=== PATIENT | female | born 1965 | race Two or more races ===

== ENCOUNTER 2024-12-01 20:10 | Inpatient (IN) | payer MEDICAID, OTHER ==
[~2024-12-01] VITALS: Ht 170.2 cm; Wt 73.0 kg
--- NOTE | 2024-12-01 20:36 | ED.PDOC ---
History of Present Illness HPI Comments 59-year-old female with PMHx Thyroid Disease, GERD presents with a chief complaint of chest pain x onset yesterday with associated abdominal pain. Patient states that her pain is localized to her RLQ and sternal chest region. Patient denies any injuries or trauma prior to onset of symptoms. Patient is currently on an antibiotic for a UTI. Patient also mentions that she is having tension in her neck. Time Seen by MD: 20:28 Reviewed Notes: Nurses Notes, Medications, Allergies Allergies: Coded Allergies: No Known Drug Allergy (Verified Allergy, Unknown, 12/01/24) Information Source: Patient Mode of Arrival: Ambulatory Severity: Moderate Timing: Days Duration: Since onset Prehospital treatment: None Past Medical History PAST MEDICAL HISTORY: GERD, Thyroid Surgical History: Denies all surgeries MONOTYPIST History: Denies all MONOTYPIST Hx Family History Family History: Reviewed,noncontributory to illness Social History Smoker: Non-Smoker Alcohol: Denies ETOH Use Drugs: Denies Drug Use Lives In: Home Constitutional: denies: chills, diaphoresis, fatigue, fever, malaise, sweats, weakness, others EENTM: denies: blurred vision, double vision, ear bleeding, ear discharge, ear drainage, ear pain, ear ringing, eye pain, eye redness, hearing loss, mouth pain, mouth swelling, nasal discharge, nose bleeding, nose congestion, nose pain, photophobia, tearing, throat pain, throat swelling, voice changes, others Respiratory: denies: cough, hemoptysis, orthopnea, SOB at rest, shortness of breath, SOB with excertion, stridor, wheezing, others Cardiovascular: reports: chest pain; denies: dizzy spells, diaphoresis, Dyspnea on exertion, edema, irregular heart beat, left arm pain, lightheadedness, palpitations, PND, syncope, others Gastrointestinal: reports: abdominal pain; denies: abdomen distended, blood streaked bowels, constipated, diarrhea, dysphagia, difficulty swallowing, hematemesis, melena, nausea, poor appetite, poor fluid intake, rectal bleeding, rectal pain, vomiting, others Genitourinary: denies: abnormal vagina bleeding, burning, dyspareunia, dysuria, flank pain, frequency, hematuria, incontinence, pain, , vagina discharge, urgency, others Neurological: denies: dizziness, fainting, headache, left sided numbness, left sided weakness, numbness, paresthesia, pre-existing deficit, right sided numbness, right sided weakness, seizure, speech problems, tingling, tremors, weakness, others Musculoskeletal: denies: back pain, gout, joint pain, joint swelling, muscle pain, muscle stiffness, neck pain, others Integumetry: denies: bruises, change in color, change in hair/nails, dryness, laceration, lesions, lumps, rash, wounds, others Allergic/Immunocompromised: denies: Difficulty Healing, Frequent Infections, Hives, Itching, others Hematologic/Lymphatic: denies: anemia, blood clots, easy bleeding, easy bruising, swollen glands, others Endocrine: denies: excessive hunger, excessive sweating, excessive thirst, excessive urination, flushing, intolerance to cold, intolerance to heat, unexplained weight gain, unexplained weight loss, others Psychiatric: denies: anxiety, bipolar disorder, depression, hopeless, panic disorder, schizophrenia, sleepless, suicidal, others All Other Systems: Reviewed and Negative Physical Exam General Appearance: Moderate Distress HEENT: Normal ENT Inspection, Pharynx Normal, TMs Normal Neck: Full Range of Motion, Non-Tender, Normal, Normal Inspection Respiratory: Chest Non-Tender, Lungs Clear, No Accessory Muscle Use, No Respiratory Distress, Normal Breath Sounds Cardiovascular: No Edema, No JVD, No Murmur, No Gallop, Normal Peripheral Pulses, Regular Rate/Rhythm Breast Exam: Deferred Gastrointestinal: Epigastric, No Organomegaly, No Pulsatile Mass, Normal Bowel Sounds, Soft, Tenderness Genitalia: Deferred Pelvic: Deferred Rectal: Deferred Extremities: No calf tenderness, Normal capillary refill, Normal inspection, Normal range of motion, Non-tender, No pedal edema Musculoskeletal : Apperance: Normal Neurologic: Alert, financial sales manager II-XII nml as Tested, No Motor Deficits, Normal Affect, Normal Mood, No Sensory Deficits Cerebellar Function: Normal Reflexes: Normal Skin: Dry, Normal Color, Warm Lymphatic: No Adenopathy Was a procedure done? Was a procedure done?: No Differential Dx Considerations may include: Pancreatitis, cholecystitis, MO, gastritis, UTI X-Ray, Labs, Meds, VS Vital Signs Date Time Temp Pulse Resp B/P (MAP) Pulse Ox O2 Delivery O2 Flow Rate FiO2 12/01/24 21:42 98.2 71 16 115/47 (69) 98 98.2 Lab Test 12/01/24 21:06 12/01/24 20:49 Range/Units Urine Color Colorless Yellow Urine Clarity Clear Clear Urine pH 6.5 5.0-9.0 Urine Specific [place] 1.002 1.001-1.035 Urine Protein Negative Negative Urine Ketones Negative Negative Urine Blood Negative Negative /uL Urine Nitrite Negative Negative Urine Bilirubin Negative Negative Urine Urobilinogen Normal Negative mg/dL Urine Leukocyte Esterase Negative Negative /uL Urine RBC <1 0 - 4 /hpf Urine Microscopic WBC < 1 0-5 /HPF Urine Squamous Epithelial Cells None seen <5 /hpf Urine Bacteria None seen None Seen /hpf Urine Glucose Normal Normal mg/dL White Blood Count 8.3 4.4-10.8 10^3/uL Red Blood Count 4.57 4.0-5.20 10^6/uL Hemoglobin 13.3 12.2-16.2 g/dL Hematocrit 39.5 36.0-46.0 % Mean Corpuscular Volume 86.4 80.0-100.0 fL Mean Corpuscular Hemoglobin 29.2 28.0-32.0 pg Mean Corpuscular Hemoglobin Concent 33.8 32.0-36.0 g/dL Red Cell Distribution Width 14.5 H 11.8-14.3 % Platelet Count 261 140-450 10^3/uL Mean Platelet Volume 7.8 6.9-10.8 fL Neutrophils (%) (Auto) 56.6 37.0-80.0 % Lymphocytes (%) (Auto) 30.7 10.0-50.0 % Monocytes (%) (Auto) 9.0 0.0-12.0 % Eosinophils (%) (Auto) 2.6 0.0-7.0 % Basophils (%) (Auto) 1.1 0.0-2.0 % Neutrophils # (Auto) 4.7 1.6-8.6 10 ^3/uL Lymphocytes # (Auto) 2.6 0.4-5.4 10 ^3/uL Monocytes # (Auto) 0.7 0-1.3 10 ^3/uL Eosinophils # (Auto) 0.2 0-0.8 10 ^3/uL Basophils # (Auto) 0.1 0-0.2 10 ^3/uL Nucleated Red Blood Cells 0.0 % Sodium Level 140 136-145 mmol/L Potassium Level 3.9 3.5-5.1 mmol/L Chloride Level 105 98-107 mmol/L Carbon Dioxide Level 29 20-31 mmol/L Anion Gap 6 5-15 Blood Urea Nitrogen 14 9-23 mg/dL Creatinine 0.76 0.550-1.02 mg/dL Glomerular Filtration Rate Calc 91 >90 mL/min BUN/Creatinine Ratio 18.4 10.0-20.0 Serum Glucose 118 H 74-106 mg/dL Calcium Level 10.1 8.7-10.4 mg/dL Total Bilirubin 0.3 0.2-1.0 mg/dL Aspartate Amino Transferase (AST) 33 13-40 U/L Alanine Aminotransferase (ALT) 30 7-40 U/L Alkaline Phosphatase 62 46-116 U/L Troponin I High Sensitivity 6 </=34 ng/L Total Protein 8.0 5.7-8.2 g/dL Albumin 5.0 H 3.2-4.8 g/dL Lipase 70 H 12-53 U/L IV Hep-Lock was established The patient was being given Protonix 40 mg IV push The patient was given Zofran 4 mg IV push The urine test is negative The CBC is within normal limits. The chemistry panel is within normal limits except for an elevated lipase of [address] scan of the abdomen and pelvis has been done The patient will be signed out to Dr. Baptiste to get the results of the CT scan Images Reviewed?: Images reviewed and evaluated by me Time of 1ST Reevaluation: 20:58 Reevaluation 1ST: Unchanged Patient Education/Counseling: Diagnosis, Treatment, Prognosis Family Education/Counseling: No Family Present Departure 1 Departure Time of Disposition: 21:55 Impression: Primary Impression: Intractable abdominal pain Additional Impression: Acute pancreatitis Qualified Codes: K85.90 - Acute pancreatitis without necrosis or infection, unspecified Disposition: 09 ADMITTED INPATIENT Admit to: Med Surg Condition: Fair Critical Care Note Critical Care Time?: No Stability Stability form required: Yes Unstable for transfer: ED Physician Assesment (Clinical assesment) Heart Score Heart Score: Heart Score Response (Comments) Value History N/A 0 EKG N/A 0 Age N/A 0 Risk Factors N/A 0 Troponin N/A 0 Total 0 I personally scribed for SAWYER UNGER MD ([email or web address]) on 12/01/24 at 20:36. Electronically submitted by Isaac Walker ([email or web address]). SAWYER UNGER MD Dec 01, 2024 20:36
[2024-12-01 21:09] LABS: Urine Bacteria None Seen /hpf (None Seen)
[2024-12-01 21:15] LABS: Basophils # (auto) 0.1 10 ^3/uL (0-0.2); Basophils % (auto) 1.1 % (0.0-2.0); Eosinophils # (auto) 0.2 10 ^3/uL (0-0.8); Eosinophils % (auto) 2.6 % (0.0-7.0); Hematocrit 39.5 % (36.0-46.0); Hemoglobin 13.3 g/dL (12.2-16.2); Lymphocytes # (auto) 2.6 10 ^3/uL (0.4-5.4); Lymphocytes % (auto) 30.7 % (10.0-50.0); Mean Corpuscular Hemoglobin 29.2 pg (28.0-32.0); Mean Corpuscular Hgb Conc. 33.8 g/dL (32.0-36.0); Mean Corpuscular Volume 86.4 fL (80.0-100.0); Monocytes # (auto) 0.7 10 ^3/uL (0-1.3); Neutrophils # (auto) 4.7 10 ^3/uL (1.6-8.6); Neutrophils % (auto) 56.6 % (37.0-80.0); Platelet Count (auto) 261 10^3/uL (140-450); Red Blood Cells 4.57 10^6/uL (4.0-5.20); Red Cell Distribution Width 14.5 % (11.8-14.3); White Blood Cell 8.3 10^3/uL (4.4-10.8)
[2024-12-01 21:18] LABS: Urine Blood Negative /uL (Negative); Urine Clarity Clear (Clear); Urine Color Colorless (Yellow); Urine Protein, UAD Negative (Negative); Urine Specific Gravity 1.002 (1.001-1.035); Urine Squamous Epithelial Cell None Seen /hpf (<5); Urine Urobilinogen Normal (Negative); Urine WBC < 1 /HPF (0-5); Urine pH 6.5 (5.0-9.0)
[2024-12-01 21:20] LABS: Alanine Aminotransferase 30 U/L (7-40); Alkaline Phosphatase 62 U/L (46-116); Anion Gap 6 (5-15); Aspartate Aminotransferase 33 U/L (13-40); BUN/Creatinine Ratio 18.4 (10.0-20.0); Bilirubin, Total 0.3 mg/dL (0.2-1.0); Blood Urea Nitrogen 14 mg/dL (9-23); Calcium 10.1 mg/dL (8.7-10.4); Carbon Dioxide 29 mmol/L (20-31); Chloride 105 mmol/L (98-107); Potassium 3.9 mmol/L (3.5-5.1); Sodium 140 mmol/L (136-145)
[2024-12-01 21:26] LABS: Glucose 118 mg/dL (74-106); Lipase 70 U/L (12-53)
--- NOTE | 2024-12-01 23:05 | DVH ---
Exam: CT CT AB PEL WO CON-NO ORAL OR IV History: pain Comparison Study: None Technique: Multidetector spiral CT of the abdomen was performed from lung bases to pubic symphysis. Imaging was performed without IV contrast. Axial, coronal and sagittal multiplanar reformats were ob tained from the axial data set by the technologist. Radiation Dose : 1. Abdomen/Pelvis: CTDIvol mGy, DLP mGy*cm. Findings: Evaluation of solid organs is limited due to lack of intravenous contrast use. Lung Bases: No abnormality demonstrated. Liver: Liver is normal in size. No focal lesions noted. Gallbladder and Biliary Tree: No abnormality demonstrated. Spleen: No abnormality demonstrated. Pancreas: No abnormality demonstrated. Adrenal Glands: No abnormality demonstrated. Kidneys: No abnormality demonstrated. No evidence of renal calculus or hydroureteronephrosis. Bladder: Grossly unremarkable for degree of distention. Bowel: Stomach appears grossly unremarkable. No abnormally dilated or thick-walled loops of large or small bowel noted. Appendix appears unremarkable. Ascites: Absent Lymphadenopathy: No evidence of lymphadenopathy. Abdominal Wall and Mesentery: Unremarkable. Vasculature: Unremarkable. Pelvic Organs: Unremarkable. Musculoskeletal: No bony lesions or fracture. IMPRESSION: No acute abdominal or pelvic findings. Radiation optimization: All CT scans at this facility use at least one of these dose optimization narda hniques: automated exposure control mA and/or kV adjustment per patient size (includes targeted exam s where dose is matched to clinical indication) or iterative reconstruction.
[2024-12-01 23:15] VITALS: RESP 15; O2SAT 98
[2024-12-01] MEDS: ONDANSETRON HCL 4 MG/2 ML VIAL IV ONE (23:15)
[2024-12-01] MEDS: PANTOPRAZOLE 40 MG/10 ML VIAL INJ IV ONE (23:15)
[2024-12-02] VITALS (9 sets, daily range): BP systolic 93–126; BP diastolic 52–75; PULSE 54–76; RESP 16–100; TEMP 97.8–98.6; O2SAT 91–100
[2024-12-02] MEDS: SODIUM CHLORIDE 0.9% 1,000 ML IV SCH (01:15)
[2024-12-02] MEDS: PANTOPRAZOLE 40 MG/10 ML VIAL INJ IV ONE (01:36)
--- NOTE | 2024-12-02 01:44 | DVHHPRES ---
History of Present Illness Resident Creating Document: CAROLINA PORTILLO RESIDENT Reason for Visit: ABDOMINAL PAIN History of Present Illness Patient is a 59-year-old female, Irish-speaking only, presented to the ED with multiple concerns, but her main problem is generalized abdominal pain. Patient said that she has chronic abdominal pains for which she takes famotidine as needed. However, for the past 3 days, patient said she has been having severe pain in the epigastric to umbilical region and sometimes involving her lower back and the RLQ. Patient denies any trauma, nausea, fever,history of gallstones or any alcohol intake. Of note, patient recently saw her primary care doctor for symptoms of UTI. Patient was given nitrofurantoin for UTI and metronidazole for vaginal inflammation. And overall is feeling better with those medication. Past medical history: Hypothyroidism, GERD Past surgical history: None Family history: noncontributory to the current illness Social history : patient lives at home with her son who is main flow nurse. Past Medical History SEE HPI Past Surgical History See HPI Review of Systems Review of Systems Constitutional: Denies fever no chill; feeling of malaise HEENT: Denies headache, ear pain, ear discharges, conjunctivitis, nasal discharge throat pain Cardiovascular: Denies chest pain, palpitation, orthopnea, PND, or pedal edema Respiratory: Denies shortness of breath, cough cough, sputum production, hemoptysis, GI: epigastric to umbilical region abdominal pain; nausea, vomiting, diarrhea, hematemesis, hematochezia, : Denies frequency, urgency, hematuria, Endocrine: Denies unintentional weight gain or weight loss, feeling of hot flashes, Patricio: Denies easy bruising, bleeding disorders, epistaxis Musculoskeletal: Denies joint pains, muscle aches Psych: No evidence of depression, cecilia, suicidal ideation Allergies: Coded Allergies: No Known Drug Allergy (Verified Allergy, Unknown, 12/01/24) Exam Vital Signs Vital Signs Date Time Temp Pulse Resp B/P (MAP) Pulse Ox O2 Delivery O2 Flow Rate FiO2 12/01/24 23:15 15 98 Room Air* 0 21 21 12/01/24 23:11 98.1 60 110/77 (88) 98.1 Exam General Appearance: Alert, Oriented X3, Cooperative, Mild acute distress HEENT: Atraumatic, PERRLA, EOMI, Mucous membrane moist/pink Respiratory: Clear to auscultation, Normal air movement Cardiovascular: Regular rate, Normal S1, Normal S2, No murmurs, no chest wall tenderness Abdominal: NO distention, Generalized tenderness on palpation; bowel sounds present, no scars noted Extremities: No clubbing, No cyanosis, No edema, Normal pulses, No tenderness/swelling Skin: No rashes, No breakdown, No significant lesion Neuro: Normal gait, Normal speech, Strength at 5/5 X4 ext, Normal tone, Sensation intact, Cranial nerves 3-12 NL, Reflexes 2+ Psych/Mental Status: Mental status NL, Mood NL Labs/Xrays Labs Test 12/01/24 21:06 12/01/24 20:49 Range/Units Urine Color Colorless Yellow Urine Clarity Clear Clear Urine pH 6.5 5.0-9.0 Urine Specific [place] 1.002 1.001-1.035 Urine Protein Negative Negative Urine Ketones Negative Negative Urine Blood Negative Negative /uL Urine Nitrite Negative Negative Urine Bilirubin Negative Negative Urine Urobilinogen Normal Negative mg/dL Urine Leukocyte Esterase Negative Negative /uL Urine RBC <1 0 - 4 /hpf Urine Microscopic WBC < 1 0-5 /HPF Urine Squamous Epithelial Cells None seen <5 /hpf Urine Bacteria None seen None Seen /hpf Urine Glucose Normal Normal mg/dL White Blood Count 8.3 4.4-10.8 10^3/uL Red Blood Count 4.57 4.0-5.20 10^6/uL Hemoglobin 13.3 12.2-16.2 g/dL Hematocrit 39.5 36.0-46.0 % Mean Corpuscular Volume 86.4 80.0-100.0 fL Mean Corpuscular Hemoglobin 29.2 28.0-32.0 pg Mean Corpuscular Hemoglobin Concent 33.8 32.0-36.0 g/dL Red Cell Distribution Width 14.5 H 11.8-14.3 % Platelet Count 261 140-450 10^3/uL Mean Platelet Volume 7.8 6.9-10.8 fL Neutrophils (%) (Auto) 56.6 37.0-80.0 % Lymphocytes (%) (Auto) 30.7 10.0-50.0 % Monocytes (%) (Auto) 9.0 0.0-12.0 % Eosinophils (%) (Auto) 2.6 0.0-7.0 % Basophils (%) (Auto) 1.1 0.0-2.0 % Neutrophils # (Auto) 4.7 1.6-8.6 10 ^3/uL Lymphocytes # (Auto) 2.6 0.4-5.4 10 ^3/uL Monocytes # (Auto) 0.7 0-1.3 10 ^3/uL Eosinophils # (Auto) 0.2 0-0.8 10 ^3/uL Basophils # (Auto) 0.1 0-0.2 10 ^3/uL Nucleated Red Blood Cells 0.0 % Sodium Level 140 136-145 mmol/L Potassium Level 3.9 3.5-5.1 mmol/L Chloride Level 105 98-107 mmol/L Carbon Dioxide Level 29 20-31 mmol/L Anion Gap 6 5-15 Blood Urea Nitrogen 14 9-23 mg/dL Creatinine 0.76 0.550-1.02 mg/dL Glomerular Filtration Rate Calc 91 >90 mL/min BUN/Creatinine Ratio 18.4 10.0-20.0 Serum Glucose 118 H 74-106 mg/dL Calcium Level 10.1 8.7-10.4 mg/dL Total Bilirubin 0.3 0.2-1.0 mg/dL Aspartate Amino Transferase (AST) 33 13-40 U/L Alanine Aminotransferase (ALT) 30 7-40 U/L Alkaline Phosphatase 62 46-116 U/L Troponin I High Sensitivity 6 </=34 ng/L Total Protein 8.0 5.7-8.2 g/dL Albumin 5.0 H 3.2-4.8 g/dL Lipase 70 H 12-53 U/L Assessment/Plan Assessment/Plan Assessment GERD Rule out acute pancreatitis, Intractable abdominal pains hypothyroidism, elevated TSH 6.77 Recent history of UTI, urinalysis is clear Plan Keep patient NPO today and resume PO tomorrow Give D5W 100ml/ hr Check T3 and T4 IV levothyroxine IV Protonix 40 mg daily Zofran Repeat Lipase Lipid panel Check UDS Checks labs in the morning ?GI consult for EGD DVT prophylaxis: Lovenox Diet: NPO for today Goal of care discussed for more than 25 minute: Full code Case and plan discussed with Dr. Rodrigues Plan discussed with: Patient My Orders Orders - CAROLINA PORTILLO RESIDENT Procedure Category Date Status Time Admit ADMIT 12/02/24 Transmitted 01:04 Code Status CODE 12/02/24 Transmitted 01:04 Vital Signs [facility] 12/02/24 Transmitted 01:04 Review Orders With [facility] 12/02/24 Transmitted Adm. 01:04 Npo (Nothing By DIET 12/02/24 Transmitted Mouth) Diet Breakfast Notify Md Of Changes [facility] 12/02/24 Transmitted From Base 01:04 Advance Directive JUAN 12/02/24 Transmitted 01:04 Lipid Panel LAB 12/02/24 Transmitted 01:04 Patient Condition ORDERS 12/02/24 Transmitted 01:04 Allergies JUAN 12/02/24 Transmitted 01:04 Drug Screen LAB 12/02/24 Transmitted 01:04 Hemoglobin A1c LAB 12/02/24 Transmitted 01:04 Lovenox 40mg PHA 12/02/24 Transmitted 10:00 Notify Md Of Changes [facility] 12/02/24 Transmitted From Base 01:04 Blood Alcohol LAB 12/02/24 Transmitted 01:04 Thyroid Stimulating LAB 12/02/24 Transmitted Hormone 01:04 H. Pylori Urea Breath LAB 12/02/24 Transmitted Test 01:04 Pantoprazole PHA 12/02/24 Transmitted (Protonix) 01:15 Pantoprazole PHA 12/02/24 Transmitted (Protonix) 10:00 NS PHA 12/02/24 Transmitted 01:15 Date of Service: Dec 02, 2024 Billing Provider: KEELEY RODRIGUES MD Common Visit Codes: [id number] INP/OBS CARE (HIGH) CAROLINA PORTILLO RESIDENT Dec 02, 2024 01:44 KEELEY RODRIGUES MD Dec 02, 2024 11:33
[2024-12-02 01:58] LABS: Cholesterol 187 mg/dL (< 200); HDL Cholesterol 59 mg/dL (40-59)
[2024-12-02 01:59] LABS: LDL Cholesterol 110 mg/dL (< 100); Triglycerides 162 mg/dL (< 150)
[2024-12-02 01:59] LABS: Amphetamine Screen, Urine Neg (NEGATIVE); Barbiturate Scree,Urine Neg (NEGATIVE); Benzodiazephine Screen, Urine Neg (NEGATIVE); Cannabinoid Screen, Urine Neg (NEGATIVE); Cocaine Screen, Urine Neg (NEGATIVE); Opiate Scree,Urine Neg (NEGATIVE); Phencyclidine Screen, Urine Neg (NEGATIVE)
[2024-12-02] MEDS ORDERED: MET500T PO (04:00)
[2024-12-02] MEDS ORDERED: NITR50CA52 PO (04:02)
[2024-12-02] MEDS ORDERED: FAMO20TA10 PO (04:02)
[2024-12-02] MEDS ORDERED: HYDROcodone-ACET 5/325MG TAB PO PRN (05:15)
[2024-12-02] MEDS ORDERED: LEVO125T7 PO (05:17)
[2024-12-02] MEDS: HYDROcodone-ACET 5/325MG TAB PO ONE (05:34)
[2024-12-02] MEDS: PANTOPRAZOLE 40 MG/10 ML VIAL INJ IV SCH (05:41)
[2024-12-02] MEDS ORDERED: ONDANSETRON HCL 4 MG/2 ML VIAL IV PRN (06:30)
[2024-12-02] MEDS ORDERED: MORPHINE SULFATE INJ 2 MG/ml SYRG IV PRN (06:30)
[2024-12-02] MEDS: D5W/LACTATED RINGERS 1,000 ML IV SCH (06:50)
[2024-12-02] MEDS: LEVOTHYROXINE SODIUM 100 MCG/5 ML INJ IV ONE (06:50)
[2024-12-02 07:22] LABS: Basophils # (auto) 0.1 10 ^3/uL (0-0.2); Basophils % (auto) 1.2 % (0.0-2.0); Eosinophils # (auto) 0.1 10 ^3/uL (0-0.8); Eosinophils % (auto) 1.8 % (0.0-7.0); Hematocrit 37.3 % (36.0-46.0); Hemoglobin 12.2 g/dL (12.2-16.2); Lymphocytes % (auto) 31.6 % (10.0-50.0); Mean Corpuscular Hemoglobin 28.4 pg (28.0-32.0); Mean Corpuscular Hgb Conc. 32.7 g/dL (32.0-36.0); Mean Corpuscular Volume 86.8 fL (80.0-100.0); Monocytes # (auto) 0.6 10 ^3/uL (0-1.3); Monocytes % (auto) 9.6 % (0.0-12.0); Neutrophils # (auto) 3.6 10 ^3/uL (1.6-8.6); Neutrophils % (auto) 55.8 % (37.0-80.0); Nucleated Red Blood Cells % 0.1 %; Platelet Count (auto) 238 10^3/uL (140-450); Red Cell Distribution Width 14.6 % (11.8-14.3); White Blood Cell 6.4 10^3/uL (4.4-10.8)
[2024-12-02 07:33] LABS: Free T3 2.89 pg/mL (2.3-4.2); Free T4 (Free Thyroxine) 1.22 ng/dL (0.89-1.76)
[2024-12-02 07:34] LABS: Calcium 9.6 mg/dL (8.7-10.4); Sodium 141 mmol/L (136-145)
[2024-12-02 07:35] LABS: Anion Gap 7 (5-15); Carbon Dioxide 27 mmol/L (20-31)
[2024-12-02 07:40] LABS: Glucose 95 mg/dL (74-106)
[2024-12-02 07:41] LABS: BUN/Creatinine Ratio 16.2 (10.0-20.0); Blood Urea Nitrogen 12 mg/dL (9-23)
[2024-12-02 07:44] LABS: Chloride 107 mmol/L (98-107); Lipase 59 U/L (12-53)
--- NOTE | 2024-12-02 08:49 | DVH ---
INDICATION: abdominal pain TECHNIQUE: Multiple real-time sonographic images were obtained of the right upper quadrant. COMPARISON: None FINDINGS: The liver demonstrates homogenous echotexture without focal mass lesions. The liver measure s 14 cm. There is no intrahepatic or extrahepatic ductal dilatation. The common duct measures 5 mm. The gallbladder is without evidence of stone or sludge. The gallbladder wall measures 1 mm and is wi thin normal limits. The right kidney measures 10.7 cm. EVALUATION IS LIMITED OF THE RIGHT KIDNEY DUE TO OBSCURATION FROM BOWEL GAS. POSSIBLE ECHOGENIC FOCUS IN THE RIGHT KIDNEY MEASURING 0.5 CM may REPRESENT NONOBSTRUCTIV E RIGHT RENAL STONE. The pancreas is not well visualized due to overlying bowel gas. IMPRESSION: No sonographic evidence of gallstones or acute cholecystitis. Possible nonobstructive right renal stone measuring 0.5 cm. No hydronephrosis.
[2024-12-02] MEDS: ENOXAPARIN SOD 40 MG/0.4 ML SYRINGE SC SCH (09:41)
[2024-12-02] MEDS: FAMOTIDINE 20 MG TAB PO SCH (09:42)
--- NOTE | 2024-12-02 12:35 | DVHPN2 ---
Reviewed: Care Plan, H&P, Labs, Medications, Previous Orders, Radiology Changes from previous H/P or p: No Changes Objective Vitals Vital Signs Date Time Temp Pulse Resp B/P (MAP) Pulse Ox O2 Delivery O2 Flow Rate FiO2 12/02/24 09:43 97.9 58 20 107/60 (76) 97 97.9 12/02/24 08:20 Room Air* 0 21 Intake/Output Intake and Output 12/02/24 07:00 Intake Total 0 ml Output Total 0 ml Balance 0 ml Intake Oral 0 ml Output Stool Total 0 ml # Voids 1 Medications Current Medications Medications Dose Ordered Sig/Hesham Route Start Time Stop Time Status Last Admin Dose Admin Enoxaparin Sodium 40 mg DAILY SC 12/02/24 10:00 12/02/24 09:41 40 MG Pantoprazole Sodium 40 mg DAILY IV 12/03/24 10:00 Famotidine 20 mg BID PO 12/02/24 10:00 12/02/24 09:42 20 MG Morphine Sulfate 1 mg Q4HPRN PRN IV 12/02/24 06:30 Levothyroxine Sodium 112 mcg QAM@0600 PO 12/03/24 06:00 Ondansetron HCl 4 mg Q6HPRN PRN IV 12/02/24 06:30 Dextrose/Lactated Ringer's 1,000 ml @ 100 mls/hr Q10H IV 12/02/24 06:30 12/02/24 06:50 100 MLS/HR Laboratory Results Laboratory Tests 12/02/24 06:45 Chemistry Test 12/01/24 20:49 12/02/24 06:45 Albumin 5.0 g/dL (3.2-4.8) H Calcium Level 10.1 mg/dL (8.7-10.4) 9.6 mg/dL (8.7-10.4) Total Protein 8.0 g/dL (5.7-8.2) Lipid panel Test 12/01/24 20:49 12/02/24 06:45 Cholesterol Level 187 mg/dL (< 200) HDL Cholesterol 59 mg/dL (40-59) Lipase 70 U/L (12-53) H 59 U/L (12-53) H Triglycerides Level 162 mg/dL (< 150) H LFT Test 12/01/24 20:49 Alanine Aminotransferase (ALT) 30 U/L (7-40) Alkaline Phosphatase 62 U/L (46-116) Aspartate Amino Transferase (AST) 33 U/L (13-40) Total Bilirubin 0.3 mg/dL (0.2-1.0) HgA1c, TSH Test 12/01/24 20:49 Hemoglobin A1c 5.6 % A1C (<5.7) Thyroid Stimulating Hormone (TSH) 6.77 uIU/mL (0.55-4.78) H Urinalysis Test 12/01/24 21:06 Urine Color Colorless (Yellow) Urine Clarity Clear (Clear) Urine pH 6.5 (5.0-9.0) Urine Specific [place] 1.002 (1.001-1.035) Urine Protein Negative (Negative) Urine Ketones Negative (Negative) Urine Blood Negative /uL (Negative) Urine Nitrite Negative (Negative) Urine Bilirubin Negative (Negative) Urine Urobilinogen Normal mg/dL (Negative) Urine Leukocyte Esterase Negative /uL (Negative) Urine RBC <1 /hpf (0 - 4) Urine Microscopic WBC < 1 /HPF (0-5) Urine Squamous Epithelial Cells None seen /hpf (<5) Urine Bacteria None seen /hpf (None Seen) Urine Glucose Normal mg/dL (Normal) Labs and/or images reviewed: Labs reviewed by me, Image(s) reviewed by me Assessment/Plan Assessment/Plan Acute abdominal pain Acute pancreatitis: Pantoprazole Acute dehydration: IV fluids Hypothyroidism TSH 6.77: Synthroid Recent history of UTI: UA clear Examined the patient with the help of inclusion teacher Pelvis without contrast negative Liver ultrasound negative for any gallstones or cholecystitis Plan discussed with: Patient Date of Service: Dec 02, 2024 Billing Provider: FAWAD ELLIS MD Common Visit Codes: [id number] INP/OBS CARE(HIGH) FAWAD ELLIS MD Dec 02, 2024 12:35
[2024-12-02] MEDS: SUCRALFATE 1 GM/10 ML ORAL SUSP PO ONE (19:28)
[2024-12-02] MEDS: SUCRALFATE 1 GM/10 ML ORAL SUSP PO SCH (21:48)
[2024-12-03 05:00] VITALS: BP 107/59; PULSE 79; RESP 18; TEMP 98.9; O2SAT 95
[2024-12-03] MEDS: LEVOTHYROXINE SODIUM 112 MCG TAB PO SCH (05:26)
[2024-12-03 08:10] VITALS: PULSE 82; RESP 15; O2SAT 93
[2024-12-03 09:00] VITALS: BP 120/68; PULSE 82; RESP 15; TEMP 98.1; O2SAT 94
[2024-12-03] MEDS: PANTOPRAZOLE 40 MG/10 ML VIAL INJ IV SCH (09:30)
[2024-12-03] MEDS ORDERED: PANTOPRAZOLE 40 MG/10 ML VIAL INJ IV SCH (10:00)
--- NOTE | 2024-12-03 11:47 | DVHPN2 ---
Reviewed: Care Plan, H&P, Labs, Medications, Previous Orders, Radiology Changes from previous H/P or p: No Changes Objective Vitals Vital Signs Date Time Temp Pulse Resp B/P (MAP) Pulse Ox O2 Delivery O2 Flow Rate FiO2 12/03/24 09:00 98.1 82 15 120/68 (85) 94 98.1 12/02/24 20:00 Room Air* 0 21 Intake/Output Intake and Output 12/03/24 07:00 Intake Total 2200 ml Balance 2200 ml Intake Oral 200 ml IV Total 2000 ml # Voids 6 Medications Current Medications Medications Dose Ordered Sig/Hesham Route Start Time Stop Time Status Last Admin Dose Admin Enoxaparin Sodium 40 mg DAILY SC 12/02/24 10:00 12/03/24 09:30 40 MG Pantoprazole Sodium 40 mg DAILY IV 12/03/24 10:00 12/03/24 09:30 40 MG Morphine Sulfate 1 mg Q4HPRN PRN IV 12/02/24 06:30 Levothyroxine Sodium 112 mcg QAM@0600 PO 12/03/24 06:00 12/03/24 05:26 112 MCG Ondansetron HCl 4 mg Q6HPRN PRN IV 12/02/24 06:30 Dextrose/Lactated Ringer's 1,000 ml @ 100 mls/hr Q10H IV 12/02/24 06:30 12/03/24 11:32 100 MLS/HR Sucralfate 1 gm TID@0600,1130,2200 PO 12/02/24 22:00 12/03/24 11:32 1 GM Laboratory Results Laboratory Tests 12/02/24 06:45 Urinalysis Test 12/01/24 21:06 Urine Color Colorless (Yellow) Urine Clarity Clear (Clear) Urine pH 6.5 (5.0-9.0) Urine Specific [place] 1.002 (1.001-1.035) Urine Protein Negative (Negative) Urine Ketones Negative (Negative) Urine Blood Negative /uL (Negative) Urine Nitrite Negative (Negative) Urine Bilirubin Negative (Negative) Urine Urobilinogen Normal mg/dL (Negative) Urine Leukocyte Esterase Negative /uL (Negative) Urine RBC <1 /hpf (0 - 4) Urine Microscopic WBC < 1 /HPF (0-5) Urine Squamous Epithelial Cells None seen /hpf (<5) Urine Bacteria None seen /hpf (None Seen) Urine Glucose Normal mg/dL (Normal) Labs and/or images reviewed: Labs reviewed by me, Image(s) reviewed by me Assessment/Plan Assessment/Plan Acute abdominal pain Acute pancreatitis: Pantoprazole Acute dehydration: IV fluids Hypothyroidism TSH 6.77: Synthroid Recent history of UTI: UA clear Examined the patient with the help of front end developer CT Pelvis without contrast negative Liver ultrasound negative for any gallstones or cholecystitis Patient feels better and wants to go home Plan discussed with: Patient Date of Service: Dec 03, 2024 Billing Provider: FAWAD ELLIS MD Common Visit Codes: [id number] INP/OBS CARE(HIGH) FAWAD ELLIS MD Dec 03, 2024 11:47
--- NOTE | 2024-12-03 11:51 | DVHDS2 ---
Discharge Summary Date of Admission Dec 02, 2024 at 01:04 Date of Discharge: Dec 03, 2024 Admitting Diagnosis epigastric pain Wounds: None Labs/Diagnostic Data: Laboratory Results Test 12/02/24 09:44 12/02/24 06:45 12/01/24 21:06 12/01/24 20:49 Lactic Acid Level 0.9 mmol/L (0.4-2.0) White Blood Count 6.4 10^3/uL (4.4-10.8) Red Blood Count 4.30 10^6/uL (4.0-5.20) Hemoglobin 12.2 g/dL (12.2-16.2) Hematocrit 37.3 % (36.0-46.0) Mean Corpuscular Volume 86.8 fL (80.0-100.0) Mean Corpuscular Hemoglobin 28.4 pg (28.0-32.0) Mean Corpuscular Hemoglobin Concent 32.7 g/dL (32.0-36.0) Red Cell Distribution Width 14.6 % (11.8-14.3) Platelet Count 238 10^3/uL (140-450) Mean Platelet Volume 7.8 fL (6.9-10.8) Neutrophils (%) (Auto) 55.8 % (37.0-80.0) Lymphocytes (%) (Auto) 31.6 % (10.0-50.0) Monocytes (%) (Auto) 9.6 % (0.0-12.0) Eosinophils (%) (Auto) 1.8 % (0.0-7.0) Basophils (%) (Auto) 1.2 % (0.0-2.0) Neutrophils # (Auto) 3.6 10 ^3/uL (1.6-8.6) Lymphocytes # (Auto) 2.0 10 ^3/uL (0.4-5.4) Monocytes # (Auto) 0.6 10 ^3/uL (0-1.3) Eosinophils # (Auto) 0.1 10 ^3/uL (0-0.8) Basophils # (Auto) 0.1 10 ^3/uL (0-0.2) Nucleated Red Blood Cells 0.1 % Sodium Level 141 mmol/L (136-145) Potassium Level 4.0 mmol/L (3.5-5.1) Chloride Level 107 mmol/L (98-107) Carbon Dioxide Level 27 mmol/L (20-31) Anion Gap 7 (5-15) Blood Urea Nitrogen 12 mg/dL (9-23) Creatinine 0.74 mg/dL (0.550-1.02) Glomerular Filtration Rate Calc 94 mL/min (>90) BUN/Creatinine Ratio 16.2 (10.0-20.0) Serum Glucose 95 mg/dL (74-106) Calcium Level 9.6 mg/dL (8.7-10.4) Lipase 59 U/L (12-53) Free Thyroxine (T4) Calculated 1.22 ng/dL (0.89-1.76) Free Triiodothyronine (T3) pg/mL 2.89 pg/mL (2.3-4.2) Urine Color Colorless (Yellow) Urine Clarity Clear (Clear) Urine pH 6.5 (5.0-9.0) Urine Specific [place] 1.002 (1.001-1.035) Urine Protein Negative (Negative) Urine Ketones Negative (Negative) Urine Blood Negative /uL (Negative) Urine Nitrite Negative (Negative) Urine Bilirubin Negative (Negative) Urine Urobilinogen Normal mg/dL (Negative) Urine Leukocyte Esterase Negative /uL (Negative) Urine RBC <1 /hpf (0 - 4) Urine Microscopic WBC < 1 /HPF (0-5) Urine Squamous Epithelial Cells None seen /hpf (<5) Urine Bacteria None seen /hpf (None Seen) Urine Glucose Normal mg/dL (Normal) Urine Opiates Screen Neg (NEGATIVE) Urine Fentanyl Screen Neg (NEGATIVE) Urine Barbiturates Screen Neg (NEGATIVE) Urine Phencyclidine Screen Neg (NEGATIVE) Urine Amphetamines Screen Neg (NEGATIVE) Urine Benzodiazepines Screen Neg (NEGATIVE) Urine Cocaine Screen Neg (NEGATIVE) Urine Cannabinoids Screen Neg (NEGATIVE) Hemoglobin A1c 5.6 % A1C (<5.7) Total Bilirubin 0.3 mg/dL (0.2-1.0) Aspartate Amino Transferase (AST) 33 U/L (13-40) Alanine Aminotransferase (ALT) 30 U/L (7-40) Alkaline Phosphatase 62 U/L (46-116) Troponin I High Sensitivity 6 ng/L (</=34) Total Protein 8.0 g/dL (5.7-8.2) Albumin 5.0 g/dL (3.2-4.8) Triglycerides Level 162 mg/dL (< 150) Cholesterol Level 187 mg/dL (< 200) LDL Cholesterol 110 mg/dL (< 100) HDL Cholesterol 59 mg/dL (40-59) Thyroid Stimulating Hormone (TSH) 6.77 uIU/mL (0.55-4.78) Plasma/Serum Blood Alcohol 4.6 mg/dL (<10) Other Laboratory Tests 12/02/24 06:45 Brief Hx & Hospital Course: 72-year-old female with a history of hypothyroidism recent UTI came in complaining of abdominal pain. CT abdomen pelvis without contrast was negative. Liver ultrasound negative for any gallstones or cholecystitis mild pancreatitis with a lipase of 62 treated with the IV fluids pantoprazole and Carafate patient feels much better being discharged home able to tolerate regular diet. Consults/Reason for consult None Operations or Procedures CT abdomen pelvis without contrast Condition at Discharge: Fair Final Diagnosis/Problems List Acute abdominal pain Acute pancreatitis: Pantoprazole Acute dehydration: IV fluids Hypothyroidism TSH 6.77: Synthroid Recent history of UTI: MAGNO jones Examined the patient with the help of stem maker CT Pelvis without contrast negative Liver ultrasound negative for any gallstones or cholecystitis Patient feels better and wants to go home Discharge Disposition: Home Discharge Instruct/Medications Diet: Regular Activity: Light activity Follow Up/Referral: Follow up with the primary Dr Medications: Transmitted to pharmacy 36 (time Taken For discharge summary 36 minutes) Discharge Statement: "Patient was advised to return to the ER or call 911 if any headaches, dizziness, shortness of breath, chest pain, abdominal pain, bleeding, fevers, or worsening of medical condition. Patient was counseled about treatment plan, medications, possible side effects, patientverbalized understanding. All questions were answered to the best of my ability. This discharge took greater then 30 minutes in planning, reviewing documentation, counseling the patient, and discussing with other team members." ASSESSMENT ASSESSMENT Hospital Course Improved Assessment Acute abdominal pain Acute pancreatitis: Pantoprazole Acute dehydration: IV fluids Hypothyroidism TSH 6.77: Synthroid Recent history of UTI: MAGNO jones Examined the patient with the help of stem maker CT Pelvis without contrast negative Liver ultrasound negative for any gallstones or cholecystitis Patient feels better and wants to go home Date of Service: Dec 03, 2024 Billing Provider: FAWAD ELLIS MD Common Visit Codes: 84170-TOD/OBS DISCH DAY >30min FAWAD ELLIS MD Dec 03, 2024 11:51
[2024-12-03] MEDS ORDERED: PANT40T PO (11:57)
[2024-12-03] MEDS ORDERED: SUCR1TAB31 PO (11:57)
[2024-12-03 12:35] VITALS: BP 124/70; PULSE 82; RESP 16; TEMP 99.5; O2SAT 95
[2024-12-03 13:04] VITALS: BP 124/70; PULSE 82; RESP 16; TEMP 99.5; O2SAT 95
== END 2024-12-03 15:00 | disposition home or self-care (01) | DRG 282 ==
LOC: ER 20:10 → OVERFLOW 12-02 01:04 → WEST WING 12-02 03:27
PROVIDERS: ADMIT Family Medicine; ATTEND Family Medicine
DX: K85.90 Acute pancreatitis without necrosis or infection, unspecified (principal); E03.9 Hypothyroidism, unspecified; E86.0 Dehydration; K21.9 Gastro-esophageal reflux disease without esophagitis; Z87.440 Personal history of urinary (tract) infections
CPT/HCPCS: 36415; 74176; 76705; 80048; 80053; 80061; 80307; 80320; 81001; 83036; 83605; 83690; 84439; 84443; 84481; 84484; 85025; G0378; J2470; J3490

== ENCOUNTER 2025-03-17 13:33 | Inpatient (IN) | payer MEDICAID ==
[~2025-03-17] VITALS: Ht 160 cm; Wt 77.0 kg
[2025-03-17] MEDS: SODIUM CHLORIDE 0.9% 1,000 ML IV SCH
[~2025-03-17 13:33] MED LIST: FAMO20TA10 PO; LEVO125T7 PO; MET500T PO; NITR50CA52 PO; PANT40T PO; SUCR1TAB31 PO
--- NOTE | 2025-03-17 14:23 | ED.PDOC ---
GI ASSESSMENT HPI Comments 59 y/o F, with PMHx of thyroid disease and GERD presents to the ED for CC of abdominal pain. Patient states, she has been experiencing RLQ abdominal pain with associated back pain x4days. Patient reports, pain to be burning in sensation. Patient comments, that she was seen at [facility] for SS x1hr INFORMATION SYSTEMS ANALYST and was told to follow up with the ED for a further evaluation of symptoms. Patient denies dysuria, fever, chills, nausea, vomiting, or diarrhea. No other symptoms or modifying factors present at this time. Chief Complaint: Abdominal Pain Time Seen by MD: 14:00 Reviewed Notes: Nurses Notes, Medications, Allergies Allergies: Coded Allergies: No Known Drug Allergy (Verified Allergy, Unknown, 12/01/24) Home Meds Active Scripts Sucralfate (CARAFATE) 1 Gm Tab, 1 GM PO QID, #60 TAB Prov:FAWAD ELLIS MD 12/03/24 Pantoprazole Sodium Sesquihydr (Pantoprazole Sodium) 40 Mg Tab, 40 MG PO DAILY, #15 TAB Prov:FAWAD ELLIS MD 12/03/24 Reported Medications Levothyroxine Sodium (Levothyroxine Sodium) 125 Mcg Tab, 1 TAB PO DAILY 12/02/24 Nitrofurantoin (MACRODANTIN CAPSULE) 50 Mg Cp, 1 CAP PO DAILY, #30 CAP 11 Refills 12/02/24 Famotidine (PEPCID TABLET) 20 Mg Tb, 1 TAB PO BID, #60 TAB 5 Refills 12/02/24 Metronidazole (Metronidazole) 500 Mg Tab, 500 MG PO, TAB 12/02/24 Information Source: Patient Mode of Arrival: Ambulatory Timing: Hours Duration: Since onset Prehospital treatment: None Quality: None Vomitus: None Stool: Normal Severity: Moderate Recent: None Recent Hx of: None Pain Location: RLQ Modifying Factors: Nothing Associated sign and symptoms: Abdominal Pain Past Medical History PAST MEDICAL HISTORY: GERD, Thyroid Surgical History: Denies all surgeries ENTERPRISE RESOURCE PLANNING CONSULTANT History: Denies all ENTERPRISE RESOURCE PLANNING CONSULTANT Hx Family History Family History: Reviewed,noncontributory to illness Social History Smoker: Non-Smoker Alcohol: Denies ETOH Use Drugs: Denies Drug Use Lives In: Home Constitutional: denies: chills, diaphoresis, fatigue, fever, malaise, sweats, weakness, others EENTM: denies: blurred vision, double vision, ear bleeding, ear discharge, ear drainage, ear pain, ear ringing, eye pain, eye redness, hearing loss, mouth pain, mouth swelling, nasal discharge, nose bleeding, nose congestion, nose pain, photophobia, tearing, throat pain, throat swelling, voice changes, others Respiratory: denies: cough, hemoptysis, orthopnea, SOB at rest, shortness of breath, SOB with excertion, stridor, wheezing, others Cardiovascular: denies: chest pain, dizzy spells, diaphoresis, Dyspnea on exertion, edema, irregular heart beat, left arm pain, lightheadedness, palpita tions, PND, syncope, others Gastrointestinal: reports: abdominal pain; denies: abdomen distended, blood streaked bowels, constipated, diarrhea, dysphagia, difficulty swallowing, hematemesis, melena, nausea, poor appetite, poor fluid intake, rectal bleeding, rectal pain, vomiting, others Genitourinary: denies: abnormal vagina bleeding, burning, dyspareunia, dysuria, flank pain, frequency, hematuria, incontinence, pain, , vagina discharg e, urgency, others Neurological: denies: dizziness, fainting, headache, left sided numbness, left sided weakness, numbness, paresthesia, pre-existing deficit, right sided numbness, right sided weakness, seizure, speech problems, tingling, tremors, weakness, others Musculoskeletal: reports: back pain; denies: gout, joint pain, joint swelling, muscle pain, muscle stiffness, neck pain, others Integumetry: denies: bruises, change in color, change in hair/nails, dryness, laceration, lesions, lumps, rash, wounds, others Allergic/Immunocompromised: denies: Difficulty Healing, Frequent Infections, Hives, Itching, others Hematologic/Lymphatic: denies: anemia, blood clots, easy bleeding, easy bruising, swollen glands, others Endocrine: denies: excessive hunger, excessive sweating, excessive thirst, excessive urination, flushing, intolerance to cold, intolerance to heat, unexplained weight gain, unexplained weight loss, others Psychiatric: denies: anxiety, bipolar disorder, depression, hopeless, panic disorder, schizophrenia, sleepless, suicidal, others All Other Systems: Reviewed and Negative Physical Exam General Appearance: No Apparent Distress, Normal HEENT: Normal ENT Inspection, Pharynx Normal Neck: Full Range of Motion, Non-Tender, Normal, Normal Inspection Respiratory: Chest Non-Tender, Lungs Clear, No Accessory Muscle Use, No Respiratory Distress, Normal Breath Sounds Cardiovascular: No Edema, No Murmur, No Gallop, Normal Peripheral Pulses, Regular Rate/Rhythm Breast Exam: Deferred Gastrointestinal: No Organomegaly, Non Tender, No Pulsatile Mass, Normal Bowel Sounds, Soft Genitalia: Deferred Pelvic: Deferred Rectal: Deferred Extremities: No calf tenderness, Normal capillary refill, Normal inspection, Normal range of motion, Non-tender, No pedal edema Musculoskeletal : Apperance: Normal Neurologic: Alert, director of outside sales II-XII nml as Tested, No Motor Deficits, Normal Affect, Normal Mood, No Sensory Deficits Cerebellar Function: Normal Reflexes: Normal Skin: Dry, Normal Color, Warm Lymphatic: No Adenopathy Was a procedure done? Was a procedure done?: No GI differential Dx Differential Diagnosis: Appendicitis, Diverticular disease, Gastritis/PUD, Gastroenteritis, Inflammatory BD X-Ray, Labs, Meds, VS Vital Signs Date Time Temp Pulse Resp B/P (MAP) Pulse Ox O2 Delivery O2 Flow Rate FiO2 03/17/25 13:50 98.4 66 16 115/76 (89) 98 98.4 Lab Test 03/17/25 14:09 03/17/25 13:50 Range/Units White Blood Count 7.0 4.4-10.8 10^3/uL Red Blood Count 4.67 4.0-5.20 10^6/uL Hemoglobin 13.4 12.2-16.2 g/dL Hematocrit 39.4 36.0-46.0 % Mean Corpuscular Volume 84.5 80.0-100.0 fL Mean Corpuscular Hemoglobin 28.7 28.0-32.0 pg Mean Corpuscular Hemoglobin Concent 33.9 32.0-36.0 g/dL Red Cell Distribution Width 14.7 H 11.8-14.3 % Platelet Count 236 140-450 10^3/uL Mean Platelet Volume 8.0 6.9-10.8 fL Neutrophils (%) (Auto) 56.1 37.0-80.0 % Lymphocytes (%) (Auto) 30.0 10.0-50.0 % Monocytes (%) (Auto) 9.9 0.0-12.0 % Eosinophils (%) (Auto) 2.5 0.0-7.0 % Basophils (%) (Auto) 1.5 0.0-2.0 % Neutrophils # (Auto) 3.9 1.6-8.6 10 ^3/uL Lymphocytes # (Auto) 2.1 0.4-5.4 10 ^3/uL Monocytes # (Auto) 0.7 0-1.3 10 ^3/uL Eosinophils # (Auto) 0.2 0-0.8 10 ^3/uL Basophils # (Auto) 0.1 0-0.2 10 ^3/uL Nucleated Red Blood Cells 0.0 % Sodium Level 139 136-145 mmol/L Potassium Level 3.7 3.5-5.1 mmol/L Chloride Level 105 98-107 mmol/L Carbon Dioxide Level 28 20-31 mmol/L Anion Gap 6 5-15 Blood Urea Nitrogen 13 9-23 mg/dL Creatinine 0.79 0.550-1.02 mg/dL Glomerular Filtration Rate Calc 87 >90 mL/min BUN/Creatinine Ratio 16.5 10.0-20.0 Serum Glucose 91 74-106 mg/dL Lactic Acid Level 0.6 0.4-2.0 mmol/L Calcium Level 10.1 8.7-10.4 mg/dL Urine Color Colorless Yellow Urine Clarity Clear Clear Urine pH 6.5 5.0-9.0 Urine Specific [place] 1.001 1.001-1.035 Urine Protein Negative Negative Urine Ketones Negative Negative Urine Blood Negative Negative /uL Urine Nitrite Negative Negative Urine Bilirubin Negative Negative Urine Urobilinogen Normal Negative mg/dL Urine Leukocyte Esterase Negative Negative /uL Urine RBC <1 0 - 4 /hpf Urine Microscopic WBC < 1 0-5 /HPF Urine Squamous Epithelial Cells None seen <5 /hpf Urine Bacteria None seen None Seen /hpf Urine Glucose Normal Normal mg/dL Time of 1ST Reevaluation: 14:30 Reevaluation 1ST: Unchanged Patient Education/Counseling: Diagnosis, Treatment Family Education/Counseling: No Family Present SEPSIS Sepsis Screen Physician Orders Chest Portable (03/17/25 14:02) Ct Ab Pel With Iv Con Only (03/17/25 14:02) Cefazolin Ancef (03/17/25 17:00) Metronidazole Ivpb Flagyl (03/17/25 17:00) Morphine Sulfate Injection (03/17/25 17:00) Ondansetron Hcl (Zofran) (03/17/25 17:00) Vital Signs Date Time Temp Pulse Resp B/P (MAP) Pulse Ox O2 Delivery O2 Flow Rate FiO2 03/17/25 13:50 98.4 66 16 115/76 (89) 98 98.4 Laboratory Tests Test 03/17/25 14:09 Lactic Acid Level 0.6 mmol/L (0.4-2.0) White Blood Count 7.0 10^3/uL (4.4-10.8) Departure 1 Departure Time of Disposition: 16:57 (Patient presented with abdominal pain that was concerning for possible appendicits, gastritis, cholecystitis, colitis, gastroenteritis, sbo, or orther possible surgical emergency. Data: 1. I ordered and reviewed the result of at least 3 labs including a CBC, BMP, and Urinalysis. 2. I independently interpreted the following tests: CT Abdoment and Pelvis is concerning for acute appendicitis .Risk:This patient has a high risk of morbidity due to further diagnostic testing or treatment and may suffer from an acute abdominal process disorder. Workup reveals acute appendicitis and patient should be admitted for further workup. and possible expert consultation. ) Impression: Primary Impression: Acute appendicitis Qualified Codes: K35.30 - Acute appendicitis with localized peritonitis, without perforation or gangrene Additional Impression: Right lower quadrant pain Disposition: ADMITTED INPATIENT Admit to: Med Surg Condition: Guarded Critical Care Note Critical Care Time?: Yes Critical care comment: Intractable abdominal pain Authorized and Performed by: Pooja Vidal MD Total critical care time: Approximately 41 minutes Due to a high probability of clinically significant, life threatening deterioration, the patient required my highest level of preparedness to intervene emergently and I personally spent this critical care time directly and personally managing the patient. This critical care time included obtaining a history; examining the patient; pulse oximetry; ordering and review of studies; arranging urgent treatment with development of a management plan; evaluation of patient's response to treatment; frequent reassessment; and, discussions with other providers. This critical care time was performed to assess and manage the high probability of imminent, life-threatening deterioration that could result in multi-organ failure. It was exclusive of separately billable procedures and treating other patients and teaching time. Please see my other sections and the rest of the note for further information on patient assessment and treatment. Stability Stability form required: No Heart Score Heart Score: Heart Score Response (Comments) Value History N/A 0 EKG N/A 0 Age N/A 0 Risk Factors N/A 0 Troponin N/A 0 Total 0 I personally scribed for POOJA VIDAL MD ([email or web address]) on 03/17/25 at 14:23. Electronically submitted by Julia Britton ([email or web address]). POOJA VIDAL MD Mar 17, 2025 14:23
[2025-03-17 14:24] LABS: Hematocrit 39.4 % (36.0-46.0); Hemoglobin 13.4 g/dL (12.2-16.2); Mean Corpuscular Hemoglobin 28.7 pg (28.0-32.0); Mean Corpuscular Volume 84.5 fL (80.0-100.0); Nucleated Red Blood Cells % 0.0 %
[2025-03-17 14:26] LABS: Urine Protein, UAD Negative (Negative)
[2025-03-17 14:32] LABS: Chloride 105 mmol/L (98-107); Potassium 3.7 mmol/L (3.5-5.1); Sodium 139 mmol/L (136-145)
[2025-03-17 14:33] LABS: Anion Gap 6 (5-15); Calcium 10.1 mg/dL (8.7-10.4); Carbon Dioxide 28 mmol/L (20-31)
[2025-03-17 14:38] LABS: BUN/Creatinine Ratio 16.5 (10.0-20.0); Blood Urea Nitrogen 13 mg/dL (9-23); Glucose 91 mg/dL (74-106)
--- NOTE | 2025-03-17 16:32 | DVH ---
CHEST RADIOGRAPH Indication: rlq pain Technique: Single frontal view of the chest was obtained Comparison: None FINDINGS: Lines and Tubes: None Lungs: No focal consolidation. Pleura: No effusion. No pneumothorax. Cardiomediastinal contours: Unremarkable Bones: No acute osseous abnormality. IMPRESSION: No acute cardiopulmonary disease.
--- NOTE | 2025-03-17 16:42 | DVH ---
Exam: CT CT AB PEL WITH IV CON ONLY History: rlq pain Comparison Study: None TECHNIQUE: Multidetector CT of the abdomen and pelvis with IV contrast. Axial, coronal and sagittal m ultiplanar reformats were obtained from the axial data set by the technologist. Radiation Dose Information: CT Dose: CTDI volume is 11.73 mGy. Dose-length product is 590.35 mGy*cm FINDINGS: Bilateral dependent atelectasis. Partially visualized heart is unremarkable. Liver, spleen, gallbladder, pancreas and adrenal glands are unremarkable. Mild bilateral renal pelviectasis. Slight horizontal position of the kidneys. No renal calculi bilat erally. Bilateral ureters are unremarkable. Urinary bladder is mildly distended. Minimal wall thicken ing of the urinary bladder. Uterus and Adnexa are unremarkable. Small hiatal hernia. Mild Gastric wall thickening with mild Wall thickening of Proximal small bowel l oops. The remainder of the small bowel loops unremarkable. Appendix is slightly prominent measuring up to 9 mm with a small appendicoliths within the appendix. The tip is not well-visualized. No peria ppendiceal inflammatory reaction or appendiceal wall thickening is noted. Moderate amount of fecal ma terial within the colon. No evidence of intraperitoneal free air or free fluid. No evidence of aortic aneurysm or dissection. No significant lymphadenopathy. Small fat containing umbilical hernia with mild fat stranding within the hernia. Soft tissues unremar kable. No destructive osseous lesions noted. IMPRESSION: Appendix measures up to 9 mm proximally with small appendicoliths within the mid appendix, no periapp endiceal inflammatory reaction and nonvisualization of the appendiceal tip. Early acute appendicitis can not be excluded. Mild bilateral renal pelviectasis with no obstructing calculus noted. Mild wall thickening of the urinary bladder. Recommend correlation with urinalysis for possible cyst itis. Mild wall thickening of the stomach and proximal small bowel which may be due to inadequate distentio n with gastroenteritis not excluded. Moderate amount of fecal material within the colon.
[2025-03-17] MEDS: SODIUM CHLORIDE 0.9% 1,000 ML IV ONE (17:01)
[2025-03-17] MEDS: ONDANSETRON HCL 4 MG/2 ML VIAL IV ONE ×2 (17:03→18:36)
[2025-03-17] MEDS: MORPHINE SULFATE 4 MG/ML SYR/VIAL IV ONE ×2 (17:05→18:38)
[2025-03-17] MEDS: IOHEXOL 300 MG/ML 100ML BOTTLE IJ ONE ×2 (17:06)
--- NOTE | 2025-03-17 17:47 | DVHINCON2 ---
Date of service: Mar 17, 2025 Family History: Patient reports no known family medical history. Allergies: Coded Allergies: No Known Drug Allergy (Verified Allergy, Unknown, 12/01/24) Home Meds Active Scripts Sucralfate (CARAFATE) 1 Gm Tab, 1 GM PO QID, #60 TAB Prov:FAWAD ELLIS MD 12/03/24 Pantoprazole Sodium Sesquihydr (Pantoprazole Sodium) 40 Mg Tab, 40 MG PO DAILY, #15 TAB Prov:FAWAD ELLIS MD 12/03/24 Reported Medications Levothyroxine Sodium (Levothyroxine Sodium) 125 Mcg Tab, 1 TAB PO DAILY 12/02/24 Nitrofurantoin (MACRODANTIN CAPSULE) 50 Mg Cp, 1 CAP PO DAILY, #30 CAP 11 Refills 12/02/24 Famotidine (PEPCID TABLET) 20 Mg Tb, 1 TAB PO BID, #60 TAB 5 Refills 12/02/24 Metronidazole (Metronidazole) 500 Mg Tab, 500 MG PO, TAB 12/02/24 Vital Signs Vital Signs Date Time Temp Pulse Resp B/P (MAP) Pulse Ox O2 Delivery O2 Flow Rate FiO2 03/17/25 17:05 65 19 104/61 03/17/25 13:50 98.4 98 98.4 Labs/Diagnostic Data Labs Test 03/17/25 14:09 03/17/25 13:50 Range/Units White Blood Count 7.0 4.4-10.8 10^3/uL Red Blood Count 4.67 4.0-5.20 10^6/uL Hemoglobin 13.4 12.2-16.2 g/dL Hematocrit 39.4 36.0-46.0 % Mean Corpuscular Volume 84.5 80.0-100.0 fL Mean Corpuscular Hemoglobin 28.7 28.0-32.0 pg Mean Corpuscular Hemoglobin Concent 33.9 32.0-36.0 g/dL Red Cell Distribution Width 14.7 H 11.8-14.3 % Platelet Count 236 140-450 10^3/uL Mean Platelet Volume 8.0 6.9-10.8 fL Neutrophils (%) (Auto) 56.1 37.0-80.0 % Lymphocytes (%) (Auto) 30.0 10.0-50.0 % Monocytes (%) (Auto) 9.9 0.0-12.0 % Eosinophils (%) (Auto) 2.5 0.0-7.0 % Basophils (%) (Auto) 1.5 0.0-2.0 % Neutrophils # (Auto) 3.9 1.6-8.6 10 ^3/uL Lymphocytes # (Auto) 2.1 0.4-5.4 10 ^3/uL Monocytes # (Auto) 0.7 0-1.3 10 ^3/uL Eosinophils # (Auto) 0.2 0-0.8 10 ^3/uL Basophils # (Auto) 0.1 0-0.2 10 ^3/uL Nucleated Red Blood Cells 0.0 % Sodium Level 139 136-145 mmol/L Potassium Level 3.7 3.5-5.1 mmol/L Chloride Level 105 98-107 mmol/L Carbon Dioxide Level 28 20-31 mmol/L Anion Gap 6 5-15 Blood Urea Nitrogen 13 9-23 mg/dL Creatinine 0.79 0.550-1.02 mg/dL Glomerular Filtration Rate Calc 87 >90 mL/min BUN/Creatinine Ratio 16.5 10.0-20.0 Serum Glucose 91 74-106 mg/dL Lactic Acid Level 0.6 0.4-2.0 mmol/L Calcium Level 10.1 8.7-10.4 mg/dL Urine Color Colorless Yellow Urine Clarity Clear Clear Urine pH 6.5 5.0-9.0 Urine Specific [place] 1.001 1.001-1.035 Urine Protein Negative Negative Urine Ketones Negative Negative Urine Blood Negative Negative /uL Urine Nitrite Negative Negative Urine Bilirubin Negative Negative Urine Urobilinogen Normal Negative mg/dL Urine Leukocyte Esterase Negative Negative /uL Urine RBC <1 0 - 4 /hpf Urine Microscopic WBC < 1 0-5 /HPF Urine Squamous Epithelial Cells None seen <5 /hpf Urine Bacteria None seen None Seen /hpf Urine Glucose Normal Normal mg/dL Assessment [id number] R/O AC APPENDICITIS ABD MILD TENDER RLQ CLINICALLY RADIOLOGICALLY NOT CONFIRMING AC APPENDICITIS CONSIDER EMERGENT SURGERY BASED ON ONGOING EVAL KEEP NPO Plan discussed with: EMILY Storey MD Mar 17, 2025 17:46
--- NOTE | 2025-03-17 18:03 | DVHINCON2 ---
DATE OF CONSULTATION: 03/17/2025 HISTORY OF PRESENT ILLNESS: This is a 59-year-old coming in with right lower quadrant pain, now feeling better. No nausea or vomiting. No constipation or diarrhea. No hematemesis or melena. No bleeding per rectum. PAST MEDICAL HISTORY: No diabetes, hypertension. PAST SURGICAL HISTORY: No significant surgical history. PHYSICAL EXAMINATION: VITAL SIGNS: Afebrile, with stable signs. HEENT: With no evidence of pallor, cyanosis or jaundice. NECK: Supple and nontender with no thyromegaly or lymphadenopathy. CHEST AND LUNGS: Clear. HEART: Within normal limits. ABDOMEN: Soft. She is tender in the right lower abdomen, minimally tender with no rebound. EXTREMITIES: Unremarkable. NEUROLOGIC: Intact. CLINICAL IMPRESSION: Rule out acute appendicitis clinically or radiologically not confirmed. PLAN: The plan will be to keep her on closed observation and reevaluate her for possible emergent surgery. MD SANTANA Campbell/ORESTES TID: [id number] RECEIPT: [id number] cc: POOJA ESTRADA
[2025-03-17] MEDS: ceFAZolin 2 GM/D5W50ml 50 ML IV ONE (18:35)
[2025-03-17 20:00] VITALS: O2SAT 96
[2025-03-17] MEDS ORDERED: HYDROMORPHONE HCL 1 MG/ML INJ IV PRN (20:30)
[2025-03-17] MEDS ORDERED: ONDANSETRON HCL 4 MG/2 ML VIAL IV PRN (21:45)
--- NOTE | 2025-03-17 21:47 | DVHHP2 ---
History of Present Illness History of Present Illness Patient is 59 years old female with past medical history of hypothyroidism, GERD came with a complaint of abdominal pain. As per patient she has been having right lower abdominal pain for last 4 days, gradual onset, 9/10 initially, intermittent, burning or pressure-like, radiating to the back, no aggravating or relieving factor. Patient went to [facility] urgent [facility] today and she needed a ultrasonogram which they could not get done over there and referred her to ER. Patient denied any nausea, vomiting, diarrhea, fever, acute joint pain or swe lling, chest pain or shortness of breath. Initial lab workup was negative for lipase, lactic acid within normal limit, urinalysis negative for UTI. CT abdomen and pelvis revealed- small appendicoliths within the mid appendix, no periappendiceal inflammatory reaction and nonvisualization of the appendiceal tip. Early acute appendicitis can not be excluded. Mild bilateral renal pel viectasis with no obstructing calculus noted, Mild wall thickening of the urinary bladder. Mild wall thickening of the stomach and proximal small bowel which may be due to inadequate distention with gastroenteritis not excluded. Moderate amount of fecal material within the colon. CXR no acute cardiopulmonary disease. Ultrasound of the abdomen nonvisualization of the appendix, thus can not exclude appendicitis. Patient was seen by surgeon Dr. Eric Michael, recommended to keep NPO, conservative management for now and consider emergency surgery based on ongoing evaluation. Past Medical History hypothyroidism, GERD Family History None Past Social History Denies smoking/alcoholism/drug abuse, lives with the spouse Review of Systems Review of Systems Allergy- NKDA Patient was seen today at the bedside Cardiovascular- deny acute chest pain or shortness of breath or cough or palpitation Respiratory denies cough or short of breath or wheezing Gastrointestinal- denies any rectal bleeding, nausea or vomiting Musculoskeletal-denies acute joint swelling or tenderness or redness Neurological- denies acute dysarthria, dysphagia, change in vision Psychiatry- denies depression or SI or HI Skin- denies acute rash or purpura Allergies: Coded Allergies: No Known Drug Allergy (Verified Allergy, Unknown, 12/01/24) Medications Current Medications Medications Dose Ordered Sig/Hesham Route Start Time Stop Time Status Last Admin Dose Admin Hydromorphone HCl 0.25 mg Q4HPRN PRN IV 03/17/25 20:30 Exam Vital Signs Vital Signs Date Time Temp Pulse Resp B/P (MAP) Pulse Ox O2 Delivery O2 Flow Rate FiO2 03/17/25 19:57 45 14 102/67 03/17/25 13:50 98.4 98 98.4 Exam General examination-awake, alert, orient HEENT- PEERLA, no acute nasal discharge Cardiovascular- S1-S2 audible, rate and rhythm regular, no murmur Respiratory- CTAB, no wheeze or rhonchi Gastrointestinal-right lower abdominal tenderness, rebound tenderness positive+, bowel sound+. Nondistended Musculoskeletal-no acute joint swelling or tenderness or redness Lower extremity- no leg edema Neurological- cranial nerves intact, no acute dysarthria or dysphagia Psychiatry- denies depression or SI or HI Skin- no acute rash or purpura Labs/Xrays Labs Test 03/17/25 14:09 03/17/25 13:50 Range/Units White Blood Count 7.0 4.4-10.8 10^3/uL Red Blood Count 4.67 4.0-5.20 10^6/uL Hemoglobin 13.4 12.2-16.2 g/dL Hematocrit 39.4 36.0-46.0 % Mean Corpuscular Volume 84.5 80.0-100.0 fL Mean Corpuscular Hemoglobin 28.7 28.0-32.0 pg Mean Corpuscular Hemoglobin Concent 33.9 32.0-36.0 g/dL Red Cell Distribution Width 14.7 H 11.8-14.3 % Platelet Count 236 140-450 10^3/uL Mean Platelet Volume 8.0 6.9-10.8 fL Neutrophils (%) (Auto) 56.1 37.0-80.0 % Lymphocytes (%) (Auto) 30.0 10.0-50.0 % Monocytes (%) (Auto) 9.9 0.0-12.0 % Eosinophils (%) (Auto) 2.5 0.0-7.0 % Basophils (%) (Auto) 1.5 0.0-2.0 % Neutrophils # (Auto) 3.9 1.6-8.6 10 ^3/uL Lymphocytes # (Auto) 2.1 0.4-5.4 10 ^3/uL Monocytes # (Auto) 0.7 0-1.3 10 ^3/uL Eosinophils # (Auto) 0.2 0-0.8 10 ^3/uL Basophils # (Auto) 0.1 0-0.2 10 ^3/uL Nucleated Red Blood Cells 0.0 % Sodium Level 139 136-145 mmol/L Potassium Level 3.7 3.5-5.1 mmol/L Chloride Level 105 98-107 mmol/L Carbon Dioxide Level 28 20-31 mmol/L Anion Gap 6 5-15 Blood Urea Nitrogen 13 9-23 mg/dL Creatinine 0.79 0.550-1.02 mg/dL Glomerular Filtration Rate Calc 87 >90 mL/min BUN/Creatinine Ratio 16.5 10.0-20.0 Serum Glucose 91 74-106 mg/dL Lactic Acid Level 0.6 0.4-2.0 mmol/L Calcium Level 10.1 8.7-10.4 mg/dL Urine Color Colorless Yellow Urine Clarity Clear Clear Urine pH 6.5 5.0-9.0 Urine Specific [place] 1.001 1.001-1.035 Urine Protein Negative Negative Urine Ketones Negative Negative Urine Blood Negative Negative /uL Urine Nitrite Negative Negative Urine Bilirubin Negative Negative Urine Urobilinogen Normal Negative mg/dL Urine Leukocyte Esterase Negative Negative /uL Urine RBC <1 0 - 4 /hpf Urine Microscopic WBC < 1 0-5 /HPF Urine Squamous Epithelial Cells None seen <5 /hpf Urine Bacteria None seen None Seen /hpf Urine Glucose Normal Normal mg/dL SEPSIS Sepsis Screen Date sepsis recognized/suspect: Mar 17, 2025 Time Sepsis recognized/suspect: 1349 Recent Procedure: No On Antibiotic Therapy: No Respiratory Rate >20: No Heart Rate >90: No Temp<36 C (96.8 F) or >38.3 C: No SBP <90 or MAP <65 mmHG: No New Acute Mental Status Change: No Is the patient on CPAP, BIPAP,: No Physician Orders Chest Portable (03/17/25 14:02) Ct Ab Pel With Iv Con Only (03/17/25 14:02) * Surgical Consult (03/17/25 ) Hydromorphone Hcl Inj (Dilaudid Injectio (03/17/25 20:30) Admit (03/17/25 21:42) Code Status (03/17/25 21:42) Complete Blood Count (03/18/25 04:00) Comprehensive Metabolic Panel (03/18/25 04:00) Npo (Nothing By Mouth) Diet (03/18/25 Breakfast) Notify Of Changes From Base (03/17/25 21:42) Emergency Dysrhythmia Protocol (03/17/25 21:42) Ceftriaxone Ivpb Rocephin (03/17/25 21:45) Ceftriaxone Ivpb Rocephin (03/17/25 21:45) Metronidazole Ivpb Flagyl (03/17/25 22:00) Pantoprazole (Protonix) (03/17/25 21:45) Pantoprazole (Protonix) (03/18/25 10:00) Ondansetron Hcl (Zofran) (03/17/25 21:45) Heparin Sodium (Porcine) (03/17/25 22:00) Vital Signs Date Time Temp Pulse Resp B/P (MAP) Pulse Ox O2 Delivery O2 Flow Rate FiO2 03/17/25 19:57 45 14 102/67 03/17/25 18:38 55 18 157/55 03/17/25 18:38 55 18 157/55 03/17/25 17:05 65 19 104/61 03/17/25 13:50 98.4 66 16 115/76 (89) 98 98.4 Laboratory Tests Test 03/17/25 14:09 Lactic Acid Level 0.6 mmol/L (0.4-2.0) White Blood Count 7.0 10^3/uL (4.4-10.8) Medications Medications Dose Ordered Sig/Hesham Route Start Time Stop Time Status Last Admin Dose Admin Cefazolin Sodium/ Dextrose 50 ml @ 50 mls/hr ONCE ONCE IV 03/17/25 17:00 03/17/25 18:06 DC 03/17/25 18:35 50 MLS/HR Metronidazole 100 ml @ 100 mls/hr ONCE ONCE IV 03/17/25 17:00 03/17/25 18:06 DC 03/17/25 18:35 100 MLS/HR Morphine Sulfate 4 mg ONCE ONCE IV 03/17/25 14:15 03/17/25 14:16 DC 03/17/25 17:05 4 MG Morphine Sulfate 4 mg ONCE ONCE IV 03/17/25 17:00 03/17/25 18:06 DC 03/17/25 18:38 4 MG Ondansetron HCl 4 mg ONCE ONCE IV 03/17/25 14:15 03/17/25 14:16 DC 03/17/25 17:03 4 MG Ondansetron HCl 4 mg ONCE ONCE IV 03/17/25 17:00 03/17/25 18:06 DC 03/17/25 18:36 4 MG Sodium Chloride 1,000 ml @ 1,000 mls/hr Q1H ONCE IV 03/17/25 14:15 03/17/25 15:14 DC 03/17/25 17:01 1,000 MLS/HR Assessment/Plan Assessment/Plan Assessment and plan # intractable abdominal pain likely due to acute appendicitis, rule out acute cholecystitis/acute pancreatitis -CT abdomen and pelvis revealed- small appendicoliths within the mid appendix, no periappendiceal inflammatory reaction and nonvisualization of the appendiceal tip. Early acute appendicitis can not be excluded. . Ultrasound of the abdomen nonvisualization of the appendix, thus can not exclude appendicitis. -NPO -continue IV normal saline 100 mL/hour -continue ceftriaxone 1 g IV daily -continue metronidazole 500 mg IV q.8h -surgery on board, recommended for conservative management for now and consider emergency surgery based on evaluation #Bradycardia -EKG sinus bradycardia -troponin I negative -continue monitoring # hypothyroidism -continue levothyroxine as prescribed # GERD -pantoprazole 40 mg IV daily #Mild bilateral renal pelviectasis -follow up outpatient with primary care physician Diet- NPO Goals of care, Code status Full code ; discussed with >15 minutes PUD prophylaxis: panromeprazole DVT prophylaxis: Heparin Plan discussed with Dr. De Los Santos , nursing staff, Total time spent on patient evaluation, chart review, assessment and plan, discussion discussion >35 minutes Plan discussed with: Patient, Other (RN) My Orders Orders - AMANDA PETTY RESIDENT Procedure Category Date Status Time Admit ADMIT 03/17/25 Transmitted 21:42 Code Status CODE 03/17/25 Transmitted 21:42 Complete Blood Count LAB 03/18/25 Verified 04:00 Comprehensive LAB 03/18/25 Verified Metabolic Panel 04:00 Npo (Nothing By DIET 03/18/25 Transmitted Mouth) Diet Breakfast Notify Of Changes JUAN 03/17/25 In Process From Base 21:42 Emergency Dysrhythmia JUAN 03/17/25 In Process Protocol 21:42 Ceftriaxone Ivpb PHA 03/17/25 Verified Rocephin 21:45 Ceftriaxone Ivpb PHA 03/17/25 Verified Rocephin 21:45 Metronidazole Ivpb PHA 03/17/25 Verified Flagyl 22:00 Pantoprazole PHA 03/17/25 Verified (Protonix) 21:45 Pantoprazole PHA 03/18/25 Verified (Protonix) 10:00 Ondansetron Hcl PHA 03/17/25 Verified (Zofran) 21:45 Heparin Sodium PHA 03/17/25 Verified (Porcine) 22:00 Date of Service: Mar 17, 2025 Billing Provider: KEELEY DE LOS SANTOS MD Common Visit Codes: [id number] INP/OBS CARE (HIGH) Secondary Visit Codes: [id number] CARE PLAN 30 MINUTES AMANDA PETTY RESIDENT Mar 17, 2025 21:46
[2025-03-17] MEDS: HEPARIN SODIUM (PORCINE) 5000 UNITS/ML 1ML VIAL SC SCH (22:00)
[2025-03-17 22:16] LABS: Alanine Aminotransferase 23 U/L (7-40); Albumin 4.8 g/dL (3.2-4.8); Alkaline Phosphatase 53 U/L (46-116); Bilirubin, Total 0.4 mg/dL (0.2-1.0); Total Protein 7.6 g/dL (5.7-8.2)
[2025-03-17 22:20] LABS: Bilirubin, Direct < 0.1 mg/dL (<0.3)
[2025-03-17 22:30] LABS: Lipase 50 U/L (12-53)
[2025-03-17 22:53] LABS: INR 1.0 (0.9-1.15); Prothrombin Time 10.6 sec (9.3-11.8)
[2025-03-17] MEDS ORDERED: cefTRIAXone 1GM/50ML D5W 50 ML IV ONE (23:00)
[2025-03-17] MEDS ORDERED: cefTRIAXone 2GM/50ML D5W 50 ML IV ONE (23:00)
[2025-03-17] MEDS: PANTOPRAZOLE 40 MG/10 ML VIAL INJ IV ONE (23:58)
[2025-03-18] VITALS (10 sets, daily range): BP systolic 93–125; BP diastolic 56–78; PULSE 47–67; RESP 16–18; TEMP 97.5–98.2; O2SAT 94–99
--- NOTE | 2025-03-18 00:08 | DVH ---
INDICATION: Appendicitis TECHNIQUE: Graded compression technique along with Multiple real-time sonographic images were obtain ed for evaluation of the right lower quadrant. FINDINGS: The appendix was not visualized. No free fluid or lymph nodes are seen on this exam. IMPRESSION: 1.Nonvisualization of the appendix, thus cannot exclude appendicitis.
[2025-03-18 03:19] LABS: Opiate Scree,Urine Pos (NEGATIVE)
[2025-03-18 03:23] LABS: Amphetamine Screen, Urine Neg (NEGATIVE); Barbiturate Scree,Urine Neg (NEGATIVE); Benzodiazephine Screen, Urine Neg (NEGATIVE); Cannabinoid Screen, Urine Neg (NEGATIVE); Cocaine Screen, Urine Neg (NEGATIVE); Phencyclidine Screen, Urine Neg (NEGATIVE)
[2025-03-18 05:59] LABS: Hematocrit 35.5 % (36.0-46.0); Hemoglobin 11.9 g/dL (12.2-16.2); Mean Corpuscular Hemoglobin 28.7 pg (28.0-32.0); Mean Corpuscular Volume 85.7 fL (80.0-100.0); Nucleated Red Blood Cells % 0.1 %
[2025-03-18 06:09] LABS: Alanine Aminotransferase 18 U/L (7-40); Alkaline Phosphatase 47 U/L (46-116); Anion Gap 7 (5-15); BUN/Creatinine Ratio 15.9 (10.0-20.0); Bilirubin, Total 0.5 mg/dL (0.2-1.0); Blood Urea Nitrogen 11 mg/dL (9-23); Calcium 8.8 mg/dL (8.7-10.4); Carbon Dioxide 26 mmol/L (20-31); Glucose 89 mg/dL (74-106); Potassium 3.7 mmol/L (3.5-5.1); Sodium 141 mmol/L (136-145); Total Protein 6.5 g/dL (5.7-8.2)
[2025-03-18 06:14] LABS: Chloride 108 mmol/L (98-107)
[2025-03-18 06:39] LABS: Albumin 4.1 g/dL (3.2-4.8)
[2025-03-18] MEDS: LEVOTHYROXINE SODIUM 100 MCG/5 ML INJ IV SCH (10:05)
[2025-03-18] MEDS: PANTOPRAZOLE 40 MG/10 ML VIAL INJ IV SCH (10:06)
[2025-03-18] MEDS: cefTRIAXone 1GM/50ML D5W 50 ML IV SCH (10:06)
--- NOTE | 2025-03-18 13:43 | DVHPNRES ---
Progress Note Date Seen: Mar 18, 2025 Resident Creating Document: TODD HASSAN RESIDENT Medical Necessity Reason Pt with a Central, PICC or Fol: No Subjective Review of Systems Patient is 59 years old female with past medical history of hypothyroidism, GERD came with a complaint of abdominal pain. As per patient she has been having right lower abdominal pain for last 4 days, gradual onset, 9/10 initially, intermittent, burning or pressure-like, radiating to the back, no aggravating or relieving factor. Patient went to [facility] urgent [facility] today and she needed a ultrasonogram which they could not get done over there and referred her to ER. Patient denied any nausea, vomiting, diarrhea, fever, acute joint pain or swelling, chest pain or shortness of breath. Initial lab workup was negative for lipase, lactic acid within normal limit, urinalysis negative for UTI. CT abdomen and pelvis revealed- small appendicoliths within the mid appendix, no periappendiceal inflammatory reaction and nonvisualization of the appendiceal tip. Early acute appendicitis can not be excluded. Mild bilateral renal pelviectasis with no obstructing calculus noted, Mild wall thickening of the urinary bladder. Mild wall thickening of the stomach and proximal small bowel which may be due to inadequate distention with gastroenteritis not excluded. Moderate amount of fecal material within the colon. CXR no acute cardiopulmonary disease. Ultrasound of the abdomen nonvisualization of the appendix, thus can not exclude appendicitis. Patient was seen by surgeon Dr. Eric Michael, recommended to keep NPO, conservative management for now and consider emergency surgery based on ongoing evaluation. Past Medical History hypothyroidism, GERD Family History None Past Social History Denies smoking/alcoholism/drug abuse, lives with the spouse 03/19 interval events: The patient reports her abdominal improved. In chest pain, shortness of breath, fever or any other complaints today. Review of systems: The patient was seen and examined at the bedside today. Overnight events were reviewed. No new complaints reported. Rest of the ROS was negative Objective vital signs Vital Sign Date Time Temp Pulse Resp B/P (MAP) Pulse Ox O2 Delivery O2 Flow Rate FiO2 03/18/25 09:00 97.5 50 16 93/56 (68) 97 97.5 03/18/25 08:00 Room Air* 0 21 Total Intake and Output 03/17/25 03/17/25 03/18/25 15:00 23:00 07:00 Intake Total 1150 ml 100 ml Output Total 0 ml Balance 1150 ml 100 ml medications Current Medications Medications Dose Ordered Sig/Hesham Route Start Time Stop Time Status Last Admin Dose Admin Hydromorphone HCl 0.25 mg Q4HPRN PRN IV 03/17/25 20:30 Metronidazole 100 ml @ 100 mls/hr Q8HR IV 03/18/25 06:00 03/18/25 05:31 100 MLS/HR Pantoprazole Sodium 40 mg DAILY IV 03/18/25 10:00 03/18/25 10:06 40 MG Ondansetron HCl 4 mg Q6HPRN PRN IV 03/17/25 21:45 Heparin Sodium (Porcine) 5,000 units Q12HR SC 03/17/25 22:00 03/18/25 00:11 5,000 UNITS Ceftriaxone Sodium 50 ml @ 100 mls/hr DAILY@09 IV 03/18/25 09:00 03/18/25 10:06 100 MLS/HR Sodium Chloride 1,000 ml @ 100 mls/hr Q10H IV 03/17/25 23:45 03/17/25 00:00 100 MLS/HR Levothyroxine Sodium 87.5 mcg DAILY IV 03/18/25 10:00 03/18/25 10:05 87.5 MCG Examination Pt is lying on bed General Appearance: Alert, Oriented X3, Cooperative, Mild distress HEENT: Atraumatic, Mucous membranes moist/pink Respiratory: Clear to auscultation, Normal air movement, No added sounds Cardiovascular: Regular rate, Normal S1, Normal S2, No murmurs Abdominal/ : Active bowel sounds, Soft, no distention, no tenderness Extremities: No edema, Normal pulses, No tenderness/swelling Skin: No Significant rash, except past surgical scars Neuro: Normal speech, sensorimotor deficits none Psych/Mental Status: Mental status NL, Mood NL Nurse was there as solution lead during examination laboratory and microbiology Laboratory Tests 03/18/25 04:36 Test 03/18/25 04:36 Range/Units Serum Glucose 89 74-106 mg/dL Labs and/or images reviewed: Labs reviewed by me, Image(s) reviewed by me Problem List/Assessment/Plan Problem List/Assessment/Plan Assessment and plan # intractable abdominal pain likely due to acute appendicitis, rule out acute cholecystitis/acute pancreatitis -CT abdomen and pelvis revealed- small appendicoliths within the mid appendix, no periappendiceal inflammatory reaction and nonvisualization of the appendiceal tip. Early acute appendicitis can not be excluded. . Ultrasound of the abdomen nonvisualization of the appendix, thus can not exclude appendicitis. -NPO -continue IV normal saline 100 mL/hour -continue ceftriaxone 1 g IV daily -continue metronidazole 500 mg IV q.8h -surgery on board, recommended for conservative management for now and consider emergency surgery based on evaluation # Sinus Bradycardia -EKG sinus bradycardia -troponin I negative -continue monitoring # hypothyroidism -continue levothyroxine as prescribed # GERD -pantoprazole 40 mg IV daily #Mild bilateral renal pelviectasis -follow up outpatient with primary care physician Diet- NPO PUD prophylaxis: panromeprazole DVT prophylaxis: Heparin Goals of care, Code status Full code ; discussed with >21 minutes Case discussed with Dr. Erickson Plan discussed with: Patient, Other (RN) Date of Service: Mar 18, 2025 Billing Provider: PREETHI ERICKSON MD Common Visit Codes: [id number] INP/OBS CARE(HIGH) TODD HASSAN RESIDENT Mar 18, 2025 13:43 CANDICE DUBOIS RESIDENT Mar 18, 2025 15:09 PREETHI ERICKSON MD Mar 18, 2025 22:35
--- NOTE | 2025-03-18 14:05 | DVHPN2 ---
Progress Note Date Seen: Mar 18, 2025 Medical Necessity Reason Pt with a Central, PICC or Fol: No Objective vital signs Vital Sign Date Time Temp Pulse Resp B/P (MAP) Pulse Ox O2 Delivery O2 Flow Rate FiO2 03/18/25 09:00 97.5 50 16 93/56 (68) 97 97.5 03/18/25 08:00 Room Air* 0 21 Total Intake and Output 03/17/25 03/17/25 03/18/25 15:00 23:00 07:00 Intake Total 1150 ml 100 ml Output Total 0 ml Balance 1150 ml 100 ml medications Current Medications Medications Dose Ordered Sig/Hesham Route Start Time Stop Time Status Last Admin Dose Admin Hydromorphone HCl 0.25 mg Q4HPRN PRN IV 03/17/25 20:30 Metronidazole 100 ml @ 100 mls/hr Q8HR IV 03/18/25 06:00 03/18/25 05:31 100 MLS/HR Pantoprazole Sodium 40 mg DAILY IV 03/18/25 10:00 03/18/25 10:06 40 MG Ondansetron HCl 4 mg Q6HPRN PRN IV 03/17/25 21:45 Heparin Sodium (Porcine) 5,000 units Q12HR SC 03/17/25 22:00 03/18/25 00:11 5,000 UNITS Ceftriaxone Sodium 50 ml @ 100 mls/hr DAILY@09 IV 03/18/25 09:00 03/18/25 10:06 100 MLS/HR Sodium Chloride 1,000 ml @ 100 mls/hr Q10H IV 03/17/25 23:45 03/17/25 00:00 100 MLS/HR Levothyroxine Sodium 87.5 mcg DAILY IV 03/18/25 10:00 03/18/25 10:05 87.5 MCG laboratory and microbiology Laboratory Tests 03/18/25 04:36 Test 03/18/25 04:36 Range/Units Serum Glucose 89 74-106 mg/dL Problem List/Assessment/Plan Problem List/Assessment/Plan AFEBRILE VSS ABD SOFT NON TENDER REPEAT CT SCAN ABD AND PELVIS WITH PO CONTRAST Plan discussed with: Patient My Orders My Orders Orders - EMILY RG MD Procedure Category Date Status Time Hydromorphone Hcl Inj PHA 03/17/25 In Process (Dilaudid Injectio 20:30 EMILY GR MD Mar 18, 2025 14:05
--- NOTE | 2025-03-18 17:27 | DVH ---
Indication: PANCREATITIS Technique: CT axial images of the abdomen and pelvis are obtained without contrast. Coronal and sagit christy reformats were obtained. Radiation Dose Information: CTDI volume is 8.3 mGy. Dose-length product is 442 mGy*cm Comparison: CT CT AB PEL WITH IV CON ONLY on DOS: 03/17/25, CT CT AB PEL WO CON-NO ORAL OR IV on DOS: 12/01/24 FINDINGS: There is limited interpretation of the abdomen and pelvis without administration of intravenous contr ast. The lung bases demonstrate atelectasis. Tiny bilateral pleural effusions. Adrenal glands, spleen and pancreas unremarkable in shape. Hydropic /Distended gallbladder with vica rious excretion contrast from the previous examination. Liver is unremarkable in shape. The kidneys demonstrate no hydronephrosis / nephrolithiasis. Small hiatal hernia. Small bowel loops normal in caliber. Moderate volume stool in the colon. No evidence for acute appendicitis. Bladder is partially distended. No free pelvic fluid. No inguinal lymphadenopathy. No aggressive osseous process. [id number] thoracolumbar degenerative disc disease. Fat containing paraumbilical hernia measuring 2.3 x 2.1 cm. IMPRESSION: No CT findings of pancreatitis. No evidence for acute appendicitis. Vicarious excretion contrast from the gallbladder suggesting renal dysfunction. Moderate volume stool in the colon. Small hiatal hernia. Other findings as described.45
[2025-03-19 01:00] VITALS: BP 128/80; PULSE 60; RESP 18; TEMP 98.8; O2SAT 98
[2025-03-19 05:15] LABS: Hematocrit 37.0 % (36.0-46.0); Hemoglobin 12.4 g/dL (12.2-16.2); Mean Corpuscular Hemoglobin 28.6 pg (28.0-32.0); Mean Corpuscular Volume 85.2 fL (80.0-100.0); Nucleated Red Blood Cells % 0.2 %
[2025-03-19 05:29] LABS: Alanine Aminotransferase 17 U/L (7-40); Albumin 4.1 g/dL (3.2-4.8); Anion Gap 9 (5-15); BUN/Creatinine Ratio 9.9 (10.0-20.0); Bilirubin, Total 0.5 mg/dL (0.2-1.0); Calcium 9.4 mg/dL (8.7-10.4); Carbon Dioxide 26 mmol/L (20-31); Glucose 87 mg/dL (74-106); Potassium 3.5 mmol/L (3.5-5.1); Sodium 142 mmol/L (136-145); Total Protein 6.5 g/dL (5.7-8.2)
[2025-03-19 05:30] LABS: Alkaline Phosphatase 46 U/L (46-116); Blood Urea Nitrogen 7 mg/dL (9-23); Chloride 107 mmol/L (98-107)
[2025-03-19 08:00] VITALS: PULSE 55; RESP 16; O2SAT 98
[2025-03-19 09:00] VITALS: BP 127/74; PULSE 55; RESP 20; TEMP 98.1; O2SAT 98
[2025-03-19 09:21] VITALS: BP 127/74; PULSE 55; RESP 20; TEMP 98.1; O2SAT 98
[2025-03-19 09:23] VITALS: TEMP 37.1
--- NOTE | 2025-03-19 09:59 | DVHPN2 ---
Progress Note Date Seen: Mar 19, 2025 Medical Necessity Reason Pt with a Central, PICC or Fol: No Objective vital signs Vital Sign Date Time Temp Pulse Resp B/P (MAP) Pulse Ox O2 Delivery O2 Flow Rate FiO2 03/19/25 09:23 37.1 03/19/25 09:21 55 20 98 03/19/25 01:00 128/80 (96) 03/18/25 20:15 Room Air* 0 21 Total Intake and Output 03/18/25 03/18/25 03/19/25 15:00 23:00 07:00 Intake Total 50 ml 1200 ml 1300 ml Balance 50 ml 1200 ml 1300 ml medications Current Medications Medications Dose Ordered Sig/Hesham Route Start Time Stop Time Status Last Admin Dose Admin Hydromorphone HCl 0.25 mg Q4HPRN PRN IV 03/17/25 20:30 Metronidazole 100 ml @ 100 mls/hr Q8HR IV 03/18/25 06:00 03/19/25 05:18 100 MLS/HR Pantoprazole Sodium 40 mg DAILY IV 03/18/25 10:00 03/19/25 08:56 40 MG Ondansetron HCl 4 mg Q6HPRN PRN IV 03/17/25 21:45 Heparin Sodium (Porcine) 5,000 units Q12HR SC 03/17/25 22:00 03/19/25 09:17 5,000 UNITS Ceftriaxone Sodium 50 ml @ 100 mls/hr DAILY@09 IV 03/18/25 09:00 03/19/25 08:55 100 MLS/HR Sodium Chloride 1,000 ml @ 100 mls/hr Q10H IV 03/17/25 23:45 03/19/25 02:56 100 MLS/HR Levothyroxine Sodium 87.5 mcg DAILY IV 03/18/25 10:00 03/19/25 08:56 87.5 MCG laboratory and microbiology Laboratory Tests 03/19/25 04:35 Test 03/19/25 04:35 Range/Units Serum Glucose 87 74-106 mg/dL Problem List/Assessment/Plan Problem List/Assessment/Plan AFEBRILE VSS ABD SOFT NON TENDER REPEAT CT SCAN ABD AND PELVIS WITH PO CONTRAST NO CLINICAL, RADIOLOGIC EVIDENCE OF AC APPENDICITIS ADVANCE DIET [place] CLEARED FOR DISCHARGE NURSE AT BEDSIDE Plan discussed with: Patient My Orders My Orders Orders - EMILY RG MD Procedure Category Date Status Time Ct Ab Pel With Oral CT 03/18/25 Resulted Con Only 14:09 Full Liq Diet DIET 03/19/25 Transmitted Breakfast EMILY RG MD Mar 19, 2025 09:59
[2025-03-19] MEDS ORDERED: METR-344 PO (10:58)
[2025-03-19] MEDS ORDERED: PANT40TA2 PO (10:58)
[2025-03-19] MEDS ORDERED: CEPH250C PO (10:58)
--- NOTE | 2025-03-19 15:54 | DVHDSRES ---
Discharge Summary Date of Admission Resident Creating Document: TODD HASSAN Mar 17, 2025 at 21:42 Date of Discharge: Mar 19, 2025 Admitting Diagnosis Abdominal pain Labs/Diagnostic Data: Laboratory Results Test 03/19/25 04:35 03/18/25 08:50 03/18/25 02:00 03/17/25 22:05 White Blood Count 5.6 10^3/uL (4.4-10.8) Red Blood Count 4.34 10^6/uL (4.0-5.20) Hemoglobin 12.4 g/dL (12.2-16.2) Hematocrit 37.0 % (36.0-46.0) Mean Corpuscular Volume 85.2 fL (80.0-100.0) Mean Corpuscular Hemoglobin 28.6 pg (28.0-32.0) Mean Corpuscular Hemoglobin Concent 33.6 g/dL (32.0-36.0) Red Cell Distribution Width 14.7 % (11.8-14.3) Platelet Count 200 10^3/uL (140-450) Mean Platelet Volume 8.1 fL (6.9-10.8) Neutrophils (%) (Auto) 59.1 % (37.0-80.0) Lymphocytes (%) (Auto) 27.4 % (10.0-50.0) Monocytes (%) (Auto) 10.5 % (0.0-12.0) Eosinophils (%) (Auto) 1.9 % (0.0-7.0) Basophils (%) (Auto) 1.1 % (0.0-2.0) Neutrophils # (Auto) 3.3 10 ^3/uL (1.6-8.6) Lymphocytes # (Auto) 1.5 10 ^3/uL (0.4-5.4) Monocytes # (Auto) 0.6 10 ^3/uL (0-1.3) Eosinophils # (Auto) 0.1 10 ^3/uL (0-0.8) Basophils # (Auto) 0.1 10 ^3/uL (0-0.2) Nucleated Red Blood Cells 0.2 % Sodium Level 142 mmol/L (136-145) Potassium Level 3.5 mmol/L (3.5-5.1) Chloride Level 107 mmol/L (98-107) Carbon Dioxide Level 26 mmol/L (20-31) Anion Gap 9 (5-15) Blood Urea Nitrogen 7 mg/dL (9-23) Creatinine 0.71 mg/dL (0.550-1.02) Glomerular Filtration Rate Calc 99 mL/min (>90) BUN/Creatinine Ratio 9.9 (10.0-20.0) Serum Glucose 87 mg/dL (74-106) Calcium Level 9.4 mg/dL (8.7-10.4) Total Bilirubin 0.5 mg/dL (0.2-1.0) Aspartate Amino Transferase (AST) 22 U/L (13-40) Alanine Aminotransferase (ALT) 17 U/L (7-40) Alkaline Phosphatase 46 U/L (46-116) Total Protein 6.5 g/dL (5.7-8.2) Albumin 4.1 g/dL (3.2-4.8) Troponin I High Sensitivity < 3 ng/L (</=34) Urine Opiates Screen Pos (NEGATIVE) Urine Fentanyl Screen Neg (NEGATIVE) Urine Barbiturates Screen Neg (NEGATIVE) Urine Phencyclidine Screen Neg (NEGATIVE) Urine Amphetamines Screen Neg (NEGATIVE) Urine Benzodiazepines Screen Neg (NEGATIVE) Urine Cocaine Screen Neg (NEGATIVE) Urine Cannabinoids Screen Neg (NEGATIVE) Prothrombin Time 10.6 sec (9.3-11.8) Prothrombin Time INR 1.00 (0.9-1.15) Test 03/17/25 14:09 03/17/25 13:50 Lactic Acid Level 0.6 mmol/L (0.4-2.0) Direct Bilirubin < 0.1 mg/dL (<0.3) Lipase 50 U/L (12-53) Thyroid Stimulating Hormone (TSH) 2.62 uIU/mL (0.55-4.78) Urine Color Colorless (Yellow) Urine Clarity Clear (Clear) Urine pH 6.5 (5.0-9.0) Urine Specific [place] 1.001 (1.001-1.035) Urine Protein Negative (Negative) Urine Ketones Negative (Negative) Urine Blood Negative /uL (Negative) Urine Nitrite Negative (Negative) Urine Bilirubin Negative (Negative) Urine Urobilinogen Normal mg/dL (Negative) Urine Leukocyte Esterase Negative /uL (Negative) Urine RBC <1 /hpf (0 - 4) Urine Microscopic WBC < 1 /HPF (0-5) Urine Squamous Epithelial Cells None seen /hpf (<5) Urine Bacteria None seen /hpf (None Seen) Urine Glucose Normal mg/dL (Normal) Other Laboratory Tests 03/19/25 04:35 Brief Hx & Hospital Course: Patient is 59 years old female with past medical history of hypothyroidism, GERD came with a complaint of abdominal pain. As per patient she has been having right lower abdominal pain for last 4 days, gradual onset, 9/10 initially, intermittent, burning or pressure-like, radiating to the back, no aggravating or relieving factor. Patient went to [place] urgent [facility] today and she needed a ultrasonogram which they could not get done over there and referred her to ER. Patient denied any nausea, vomiting, diarrhea, fever, acute joint pain or swelling, chest pain or shortness of breath. Initial lab workup was negative for lipase, lactic acid within normal limit, urinalysis negative for UTI. Ultrasound of the abdomen nonvisualization of the appendix, thus can not exclude appendicitis. CT abdomen and pelvis revealed- small appendicoliths within the mid appendix, no periappendiceal inflammatory reaction and nonvisualization of the appendiceal tip. Early acute appendicitis can not be excluded. Mild bilateral renal pelviectasis with no obstructing calculus noted, Mild wall thickening of the urinary bladder. Mild wall thickening of the stomach and proximal small bowel which may be due to inadequate distention with gastroenteritis not excluded. Moderate amount of fecal material within the colon. CXR no acute cardiopulmonary disease. Patient was seen by surgeon Dr. Eric Michael, recommended to keep NPO, conservative management for now and consider emergency surgery based on ongoing evaluation. Patient symptoms was controlled with NPO IV fluid and antibiotic ceftriaxone and metronidazole. Later we transitioned her to soft mechanical diet and eventually she could tolerate regular food. During the time of discharge patient was tolerating diet well, afebrile, stable. Discharge plan was discussed with the patient and patient agreed. Patient will be discharged home. Patient will take cephalexin Flagyl post discharge. Patient will follow- up with PCP in a week Past Medical History hypothyroidism, GERD Family History None Past Social History Denies smoking/alcoholism/drug abuse, lives with the spouse Pt is lying on bed General Appearance: Alert, Oriented X3, Cooperative, Mild distress HEENT: Atraumatic, Mucous membranes moist/pink Respiratory: Clear to auscultation, Normal air movement, No added sounds Cardiovascular: Regular rate, Normal S1, Normal S2, No murmurs Abdominal/ : Active bowel sounds, Soft, no distention, no tenderness Extremities: No edema, Normal pulses, No tenderness/swelling Skin: No Significant rash, except past surgical scars Neuro: Normal speech, sensorimotor deficits none Psych/Mental Status: Mental status NL, Mood NL 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 No evidence for acute appendicitis. Vicarious excretion contrast from the gallbladder suggesting renal dysfunction. Moderate volume stool in the colon. Condition at Discharge: Stable (RN) Final Diagnosis/Problems List Acute abdominal pain likely due to appendicitis Hypothyroidism GERD Sinus bradycardia Bilateral renal pelvis Discharge Disposition: Home Discharge Instruct/Medications Diet: Consistent carbohydrate Activity: No Restrictions, As Tolerated Follow Up/Referral: Follow up in a week with PCP Medications: As per EMR Scheduled Cephalexin (Keflex Capsule), 2 CAP PO BID Famotidine (Pepcid Tablet), 1 TAB PO BID, (Reported) Levothyroxine Sodium (Levothyroxine Sodium), 1 TAB PO DAILY, (Reported) Metronidazole (Flagyl), 1 TAB PO TID Nitrofurantoin (Macrodantin Capsule), 1 CAP PO DAILY, (Reported) Pantoprazole Sodium Sesquihydr (Pantoprazole Sodium), 40 MG PO DAILY Pantoprazole Sodium Sesquihydr (Protonix), 40 MG PO DAILY Sucralfate (Carafate), 1 GM PO QID Miscellaneous Medications Metronidazole (Metronidazole), 500 MG PO, (Reported) Discharge Statement: "Patient was advised to return to the ER or call 911 if any headaches, dizziness, shortness of breath, chest pain, abdominal pain, bleeding, fevers, or worsening of medical condition. Patient was counseled about treatment plan, medications, possible side effects, patientverbalized understanding. All questions were answered to the best of my ability. This discharge took greater then 30 minutes in planning, reviewing documentation, counseling the patient, and discussing with other team members." ASSESSMENT ASSESSMENT Assessment ABDOMINAL PAIN Date of Service: Mar 19, 2025 Billing Provider: PREETHI ERICKSON MD Common Visit Codes: 20332-TCS/OBS DISCH DAY >30min TODD HASSAN Mar 19, 2025 15:54 PREETHI ERICKSON MD Mar 19, 2025 22:56
== END 2025-03-19 11:05 | disposition home or self-care (01) | DRG 243 ==
LOC: ER 13:33 → OVERFLOW 21:42 → WEST WING 03-18 02:29 → TELE-WESTW 03-18 05:29
PROVIDERS: ADMIT Internal Medicine; ATTEND Internal Medicine
DX: K21.9 Gastro-esophageal reflux disease without esophagitis (principal); E03.9 Hypothyroidism, unspecified; N28.89 Other specified disorders of kidney and ureter; Z79.899 Other long term (current) drug therapy
CPT/HCPCS: 36415; 71045; 74176; 74177; 76705; 80048; 80053; 80076; 80307; 81001; 83605; 83690; 84443; 84484; 85025; 85610; 86850; 86900; 86901; 87086; 96361; 96365; 96375; 99291; G0378; J2405; J2470; J3490